=== PATIENT | male | born 1950 | race Caucasian/White ===

== ENCOUNTER 2022-01-19 19:52 | Inpatient (IN) ==
[2022-01-19] MEDS ORDERED: IOPAMIDOL 100 ML BOTTLE IV ONE (19:53)
--- NOTE | 2022-01-19 19:56 | Emergency Department Note ---
HPI General Chief complaint: Stroke Symptoms Stated complaint: stroke symptoms Time Seen by Provider: 01/19/22 19:56 Source: patient and family Mode of arrival: wheelchair Limitations: no limitations History of Present Illness HPI Narrative: 71-year-old male with past medical history of prior CVA and gait issues, known aortic dissection, CHF, CKD, atrial fibrillation not on anticoagulation, CAD, and hypertension presenting with slurred speech and arm numbness. Patient was seen in the emergency department 3 days ago with reports of slurred speech that had since resolved. He was evaluated and had a negative CT brain without contrast. It was presumed he had a TIA and he was discharged. He reportedly today was endorsing some numbness in his right arm earlier in the day, unknown exactly what time. Around 5 PM family noted some slurring of his speech so he was brought to the ED. Patient is also reportedly more confused than usual. Patient is not on anticoagulation. Patient does endorse some numbness in his right arm. He denies headache, vision changes, or weakness. Patient reportedly has chronic gait instability which seems to be worsening over the last week. He reportedly had multiple falls 4 days ago. No vomiting, shortness of breath, or chest pain. Related Data Home Medications Medication Instructions Recorded Confirmed tamsulosin 0.4 mg capsule (Flomax) 0.4 mg PO PRN PRN 07/22/20 11/29/21 valsartan 160 mg tablet 160 mg PO QDAY 07/22/20 11/29/21 clonidine HCl 0.1 mg tablet 1 tab PO TID 01/20/22 01/20/22 metoprolol tartrate 100 mg tablet 1 tab PO BID 01/20/22 01/20/22 nifedipine 30 mg tablet,extended 1 tab PO BID 01/20/22 01/20/22 release Allergies Allergy/AdvReac Type Severity Reaction Status Date / Time venom-honey bee Allergy Unknown Unknown Verified 01/16/22 16:39 spider venom Allergy Unknown Verified 01/16/22 16:39 Review of Systems ROS ROS Narrative: Narrative: Constitutional: Denies fever Eyes: Denies vision change ENT ED: Denies throat pain Cardiovascular: Denies chest pain Respiratory: Denies shortness of breath or cough Gastrointestinal: Denies abdominal pain, nausea or vomiting Genitourinary: Denies dysuria Musculoskeletal: Denies back pain Integumentary: Denies rash Neurological: Reports as per HPI Hematological/Lymphatic: Denies easy bruising PFSH Narrative Patient History Narrative: Narrative: Medical/Surgical/Family History All Active Problems (Updated 01/19/22 @ 23:18 by Dontae Crowley MD) Difficulty with speech (Acute) TIA (transient ischemic attack) (Acute) CVA (cerebrovascular accident) (Acute) Edema (Chronic) Hypothyroidism (Chronic) Other chest pain (Chronic) Acute kidney failure (Chronic) CAD (coronary artery disease) (Chronic) Elevated PSA (Chronic) Obstructive and reflux uropathy, unspecified (Chronic) Malignant hypertension (Chronic) Hypertensive urgency (Chronic) HTN (hypertension) (Chronic) History of aortic dissection (Chronic) Hematuria (Chronic) Fever (Chronic) Elevated troponin (Chronic) Chest pain (Chronic) Acute urinary retention (Chronic) Hyperbilirubinemia (Chronic) Situational anxiety (Chronic) Situational depression (Chronic) Esophageal dysphagia (Chronic) Oropharyngeal dysphagia (Chronic) Hearing loss (Chronic) Diplopia (Chronic) Wears dentures (Chronic) Hallucination (Chronic) Blurred vision (Chronic) History of orthopnea (Chronic) Tachycardia (Chronic) Loss of appetite (Chronic) Visual disturbance (Chronic) Difficulty concentrating (Chronic) Malaise (Chronic) Elevated blood pressure reading (Chronic) Left sided lacunar infarction (Chronic) Acute CVA (cerebrovascular accident) (Chronic) Cardiomyopathy (Chronic) Chronic systolic (congestive) heart failure (Chronic) Hyperlipidemia (Chronic) Dysuria (Chronic) Hypertriglyceridemia (Chronic) GERD (gastroesophageal reflux disease) (Chronic) Insomnia (Chronic) Contact dermatitis and other eczema due to other chemical products (Chronic) Cellulitis (Chronic) Sebaceous cyst (Chronic) Systolic heart failure (Chronic) Fatigue (Chronic) Gout (Chronic) Atrial fibrillation (Chronic) Chronic kidney disease (Chronic) Hypertension (Chronic) Stroke/cerebrovascular accident (Chronic) Retention of urine, unspecified (Chronic) BPH (benign prostatic hyperplasia) (Chronic) Hallucination, visual (Chronic) Altered mental state (Chronic) Abnormal ECG (Chronic) LVH (left ventricular hypertrophy) (Chronic) Abnormal CT of brain (Chronic) Dilated cardiomyopathy (Chronic) History of CHF (congestive heart failure) (Chronic) Carotid atherosclerosis (Chronic) Medical History (Updated 01/19/22 @ 23:18 by Dontae Crowley MD) Abnormal CT of brain Abnormal ECG Acute CVA (cerebrovascular accident) Acute kidney failure Acute urinary retention 71-year-old gentleman with long history of BPH with obstruction and intermittent episodes of urinary retention. He currently has been in urinary retention since July with an indwelling Mathews catheter. He is not a good surgical candidate I suspect due to his vascular and cardiac issues. Today we discussed options of replacing his Mathews catheter and planning a voiding trial in the future versus teaching him self intermittent catheterization. He was very interested in trying self-catheterization and therefore we instructed him in how to do this. He was able to do it with moderate coaching, I am a little suspect about whether he will be able to do this on his own. He does have a history of some strokes and has some decreased function in his right hand. After much discussion we opted to let him give it a try and he was given catheters and instructions to report to the emergency room if unable to catheterize. Otherwise he will follow-up here in clinic in 1 month. He is to try to take his Flomax on a daily basis. If he is unable to urinate a cystoscopy would be warranted to see if he would be a candidate for a minimally invasive prostate procedures such as UroLift Altered mental state Atrial fibrillation Blurred vision BPH (benign prostatic hyperplasia) CAD (coronary artery disease) Cardiomyopathy Carotid atherosclerosis Cellulitis left leg Chest pain CHF (congestive heart failure) Chronic kidney disease Chronic systolic (congestive) heart failure Contact dermatitis and other eczema due to other chemical products Difficulty concentrating Dilated cardiomyopathy Diplopia Dysuria Edema Elevated blood pressure reading Elevated PSA Elevated troponin Esophageal dysphagia Fatigue Fever GERD (gastroesophageal reflux disease) Gout Hallucination Hallucination, visual Health maintenance examination Hearing loss Hematuria History of aortic dissection History of CHF (congestive heart failure) History of orthopnea HTN (hypertension) Hyperbilirubinemia Hyperlipidemia Hypertension Hypertensive urgency Hypertriglyceridemia Hypothyroidism Insomnia Left sided lacunar infarction Loss of appetite LVH (left ventricular hypertrophy) Malaise Malignant hypertension Obstructive and reflux uropathy, unspecified Oropharyngeal dysphagia Other chest pain Retention of urine, unspecified Sebaceous cyst Situational anxiety Situational depression Stroke/cerebrovascular accident Systolic heart failure Tachycardia Visual disturbance Wears dentures Surgical History History of dental surgery Family History Mother Cancer at age 76, complications with liver cancer. Father at age 58. Logging accident. Brother Kidney failure at age 36 Social History Smoking Status: Never smoker Alcohol Intake Frequency: former alcohol drinker Substance Use: does not use Exam Narrative Narrative: Narrative: General Limitations: no limitations General appearance: Present alert and in no apparent distress Head Head: Present atraumatic and normocephalic Eye Eye: Present normal appearance, PERRL, EOMI and visual willis intact; Absent scleral icterus, conjunctival injection or nystagmus ENT ENT: Present mucous membranes moist Neck Neck: Present trachea midline Chest Chest: Present symmetric chest wall rise Respiratory Respiratory: Present normal lung sounds bilaterally; Absent respiratory distress, rales/crackles, wheezes, stridor or accessory muscle use Cardiovascular Cardiovascular: Present normal rhythm and irregular rhythm; Absent systolic murmur or diastolic murmur Adbominal Abdominal: Present soft; Absent distention, tenderness, guarding, rebound or rigidity Extremities Extremities: Absent pretibial edema Neurological Neurological: Present alert, CN II-XII intact and other (Mildly confused) Expanded Neurological Patient oriented to: Present person and place; Absent time Speech: Absent expressive aphasia or dysarthria CRANIAL NERVES: EOM function (II, III, IV, ): Normal, facial sensation (V): Normal, facial palsy (VII): Normal, gag reflex (IX): Normal, spinal accessory function (XI): Normal and tongue deviation (XII): Normal CEREBELLAR FUNCTION: finger to nose: Abnormal Right Motor strength - LUE: 5/5 Motor strength - RUE: 5/5 Motor strength - LLE: 5/5 Motor strength - RLE: 5/5 UPPER MOTOR NEURON EXAM: donald neglect: Normal SENSORY EXAM UPPER EXTREMITY: Abnormal Right: light touch SENSORY EXAM LOWER EXTREMITY: Abnormal Right: light touch Coma Scale Eye Opening: Spontaneous Coma Scale Motor Response: Obeys Commands Coma Scale Verbal Response: Oriented Coma Scale Total: 15 Psychiatric Psychiatric: Present normal affect and normal mood Skin Skin: Present warm (WNL) and dry Course Consultations Consultation #1: Dr. Cordova, stroke neurology Time: 20:40 Consultation #2: Dr. Acosta, hospitalist Time: 23:20 Vital Signs Vital signs: Vital Signs Temperature 97.9 F 01/19/22 19:53 Pulse Rate 96 H 01/19/22 19:53 Respiratory Rate 16 01/19/22 19:53 Blood Pressure 143/82 01/19/22 19:53 Pulse Oximetry (%) 97 01/19/22 19:53 Temperature 97.8 F 01/20/22 00:45 Pulse Rate 89 01/20/22 00:45 Respiratory Rate 16 01/20/22 00:45 Blood Pressure 160/99 01/20/22 00:45 Pulse Oximetry (%) 98 01/20/22 00:45 MDM MDM Narrative Medical decision making narrative: 71-year-old male presenting with slurred speech and arm numbness. He is mildly confused with slurred speech, limb ataxia and decreased sensation in the right limbs. No weakness. NIH stroke scale is 4. Blood glucose is 128. Code stroke activated. I spoke with Dr. Cordova of stroke neurology who states the patient appears to have a subacute right occipital infarct on CT brain without contrast. tPA is not indicated. He recommends CTA head and neck which were ordered. As long there is no large vessel occlusion, he recommends aspirin, atorvastatin, and admission for MRI. Aspirin 325mg and atorvastatin 80mg ordered. CTA head and neck show no evidence of significant stenosis or dissection in the neck. Labs appear stable. UA may be consistent with infection, dose of IV Rocephin ordered and urine sent for culture. 2320: I spoke with Dr. Acosta, hospitalist, who has graciously agreed to accept the patient for admission. Lab Data Lab results reviewed: Yes I reviewed the patient's lab results. Result diagrams: 01/19/22 20:08 01/19/22 20:07 Labs: Lab Results 01/19/22 01/19/22 01/19/22 Range/Units 20:06 20:07 20:08 WBC 6.7 (4.5-11.0) K/mcL RBC 4.61 L (4.63-6.08) M/mcL Hgb 13.2 L (13.7-17.5) g/dL Hct 40.2 (40.1-51.0) % MCV 87.2 (80.0-100.0) fL MCH 28.6 (26.0-34.0) pg MCHC 32.8 (31.0-36.0) g/dL RDW 14.0 (11.5-14.5) % Plt Count 219 (140-440) K/mcL MPV 11.3 H (7.4-10.4) fL Neut % (Auto) 59.2 (38.0-78.0) % Lymph % (Auto) 23.5 (15.5-49.0) % [place] % (Auto) 15.5 H (1.0-12.0) % Eos % (Auto) 1.2 (0.0-7.0) % Baso % (Auto) 0.6 (0.0-2.0) % Lymph # (Auto) 1.58 (1.50-4.80) K/mcL [place] # (Auto) 1.04 H (0.10-0.90) K/mcL Eos # (Auto) 0.08 (0.00-0.70) K/mcL Baso # (Auto) 0.04 (0.00-0.30) K/mcL Absolute Neutrophils 3.98 (1.80-8.00) K/mcL POC PT (11.9-14.5) PT (11.9-14.5) sec POC INR (0.8-1.2) INR (0.9-1.1) APTT (20.0-37.0) sec Sodium 135 (133-145) mmol/L Potassium 3.4 (3.3-5.1) mmol/L Chloride 100 (96-108) mmol/L Carbon Dioxide 22 (22-30) mmol/L Anion Gap 13.0 (8.0-16.0) BUN 16 (8-23) mg/dL Creatinine 1.3 H (0.7-1.2) mg/dL GFR Calculation 56 Glucose 141 H (70-105) mg/dL Calcium 8.9 (8.6-10.4) mg/dL Total Bilirubin 1.1 H (0.1-1.0) mg/dL AST 26 (<40) U/L ALT 14 (<40) U/L Alkaline Phosphatase 100 (39-117) U/L Troponin T (<0.03) ng/mL Total Protein 7.4 (5.9-8.4) gm/dL Albumin 3.6 (3.2-5.2) gm/dL Globulin 3.8 H (2.2-3.7) gm/dL Albumin/Globulin Ratio 0.9 L (1.0-2.3) Urine Color [place] Urine Appearance Cloudy A (Clear) Urine pH 5.0 (5.0-9.0) Ur Specific [place] 1.014 (1.000-1.035) Urine Protein 30 A (Negative) mg/dL Urine Glucose (UA) Negative (Negative) mg/dL Urine Ketones Negative (Negative) mg/dL Urine Occult Blood 0.03 (Negative) mg/dL Urine Nitrate Pos A (Negative) Urine Bilirubin Negative (Negative) mg/dL Urine Urobilinogen Negative mg/dL Ur Leukocyte Esterase 500 A (Negative) /uL Urine RBC 7 H (0-3) /hpf Urine WBC > 182 H (0-4) /hpf Ur Squamous Epith Cells 0 (0-4) /hpf Urine Bacteria Many A (0) /hpf Hyaline Casts 3 H (0-2) /lph Urine Mucus Few A (None) /hpf Ur Culture Indicated? yes 01/19/22 01/19/22 01/19/22 Range/Units 20:08 20:08 20:10 WBC (4.5-11.0) K/mcL RBC (4.63-6.08) M/mcL Hgb (13.7-17.5) g/dL Hct (40.1-51.0) % MCV (80.0-100.0) fL MCH (26.0-34.0) pg MCHC (31.0-36.0) g/dL RDW (11.5-14.5) % Plt Count (140-440) K/mcL MPV (7.4-10.4) fL Neut % (Auto) (38.0-78.0) % Lymph % (Auto) (15.5-49.0) % [place] % (Auto) (1.0-12.0) % Eos % (Auto) (0.0-7.0) % Baso % (Auto) (0.0-2.0) % Lymph # (Auto) (1.50-4.80) K/mcL [place] # (Auto) (0.10-0.90) K/mcL Eos # (Auto) (0.00-0.70) K/mcL Baso # (Auto) (0.00-0.30) K/mcL Absolute Neutrophils (1.80-8.00) K/mcL POC PT 14.9 H (11.9-14.5) PT 15.5 H (11.9-14.5) sec POC INR 1.3 H (0.8-1.2) INR 1.2 H (0.9-1.1) APTT 31.6 (20.0-37.0) sec Sodium (133-145) mmol/L Potassium (3.3-5.1) mmol/L Chloride (96-108) mmol/L Carbon Dioxide (22-30) mmol/L Anion Gap (8.0-16.0) BUN (8-23) mg/dL Creatinine (0.7-1.2) mg/dL GFR Calculation Glucose (70-105) mg/dL Calcium (8.6-10.4) mg/dL Total Bilirubin (0.1-1.0) mg/dL AST (<40) U/L ALT (<40) U/L Alkaline Phosphatase (39-117) U/L Troponin T < 0.01 (<0.03) ng/mL Total Protein (5.9-8.4) gm/dL Albumin (3.2-5.2) gm/dL Globulin (2.2-3.7) gm/dL Albumin/Globulin Ratio (1.0-2.3) Urine Color Urine Appearance (Clear) Urine pH (5.0-9.0) Ur Specific [place] (1.000-1.035) Urine Protein (Negative) mg/dL Urine Glucose (UA) (Negative) mg/dL Urine Ketones (Negative) mg/dL Urine Occult Blood (Negative) mg/dL Urine Nitrate (Negative) Urine Bilirubin (Negative) mg/dL Urine Urobilinogen mg/dL Ur Leukocyte Esterase (Negative) /uL Urine RBC (0-3) /hpf Urine WBC (0-4) /hpf Ur Squamous Epith Cells (0-4) /hpf Urine Bacteria (0) /hpf Hyaline Casts (0-2) /lph Urine Mucus (None) /hpf Ur Culture Indicated? Radiology Data Radiology results reviewed: Yes I reviewed the patient's radiology results. Radiology results narrative: CTA head and neck: No significant stenosis or dissection, per outside radiology interpretation. CT head without contrast: Chronic ischemic changes without hemorrhage or acute ischemic findings, per outside radiology interpretation. EKG Data EKG #1: EKG attestation: Yes I reviewed and interpreted this EKG. and Yes There are no EKG findings of acute coronary syndrome EKG results narrative: Atrial fibrillation at 89 bpm. QT prolonged. No ST elevation. Discharge Plan Patient/Caregiver Discharge Instructions Pt seen by FINANCIAL SERVICES REP/PA only: No Clinical Impression: CVA (cerebrovascular accident) Patient Disposition: Xfer As Inpt ([facility]) Condition: Fair Discharge Date/Time: 01/20/22 00:45
[2022-01-19 20:13] LABS: POC INR 1.3 (0.8-1.2); POC Pro Time 14.9 (11.9-14.5)
[2022-01-19 20:48] LABS: Basophils # (Auto) 0.04 K/mcL (0.00-0.30); Basophils % (Auto) 0.6 % (0.0-2.0); Eosinophils # (Auto) 0.08 K/mcL (0.00-0.70); Eosinophils % (Auto) 1.2 % (0.0-7.0); Hematocrit 40.2 % (40.1-51.0); Hemoglobin 13.2 g/dL (13.7-17.5); Lymphocytes # (Auto) 1.58 K/mcL (1.50-4.80); Lymphocytes % (Auto) 23.5 % (15.5-49.0); Mean Cell Volume 87.2 fL (80.0-100.0); Mean Corpuscular HGB Conc 32.8 g/dL (31.0-36.0); Mean Platelet Volume 11.3 fL (7.4-10.4); Monocytes # (Auto) 1.04 K/mcL (0.10-0.90); Monocytes % (Auto) 15.5 % (1.0-12.0); Neutrophils % (Auto) 59.2 % (38.0-78.0); Platelet Count 219 K/mcL (140-440); RBC 4.61 M/mcL (4.63-6.08); WBC 6.7 K/mcL (4.5-11.0)
[2022-01-19 20:52] LABS: Appearance,Urine CLOUDY (Clear); Bacteria,Urine MANY /hpf (0); Bilirubin,Urine Negative (Negative); Color,Urine AMBER; Culture Indicated,Urine yes; Glucose,Urine (UA) Negative (Negative); Ketones,Urine Negative (Negative); Leukocyte Esterase,Urine 500 /uL (Negative); Mucus,Urine FEW /hpf; Nitrate,Urine POS (Negative); Protein,Urine 30 mg/dL (Negative); Specific Gravity,Urine 1.014 (1.000-1.035); Urine Blood 0.03 mg/dL (Negative); Urine Hyaline Cast 3 /lph (0-2); Urine RBC 7 /hpf (0-3); Urine Squamous Epithelial Cell 0 /hpf (0-4); Urine WBC > 182 /hpf (0-4); Urobilinogen,Urine Negative
[2022-01-19 20:58] LABS: INR 1.2 (0.9-1.1); Partial Thromboplastin Time 31.6 sec (20.0-37.0); Prothrombin Time 15.5 sec (11.9-14.5)
[2022-01-19] MEDS ORDERED: ASPIRIN 325 MG ENTERIC COATED TABLET PO ONE (20:59)
[2022-01-19] MEDS ORDERED: ATORVASTATIN 40 MG TABLET PO ONE (20:59)
[2022-01-19 21:06] LABS: ALT/SGPT 14 U/L (<40); AST/SGOT 26 U/L (<40); Albumin 3.6 gm/dL (3.2-5.2); Albumin/Globulin Ratio 0.9 (1.0-2.3); Alkaline Phosphatase 100 U/L (39-117); Bilirubin,Total 1.1 mg/dL (0.1-1.0); Blood Urea Nitrogen 16 mg/dL (8-23); Calcium 8.9 mg/dL (8.6-10.4); Carbon Dioxide 22 mmol/L (22-30); Chloride 100 mmol/L (96-108); Globulin 3.8 gm/dL (2.2-3.7); Glomerular Filtration Rate 56; Glucose 141 mg/dL (70-105)
[2022-01-19] MEDS ORDERED: DILTIAZEM 25 MG/5 ML VIAL IV PRN (23:12)
[2022-01-19] MEDS ORDERED: ONDANSETRON 4 MG/2 ML VIAL IV PRN (23:12)
[2022-01-19] MEDS ORDERED: QUEtiapine 25 MG TABLET PO PRN (23:12)
[2022-01-19] MEDS ORDERED: hydrALAZINE 20 MG/ML VIAL IV PRN (23:12)
[2022-01-19] MEDS ORDERED: ACETAMINOPHEN 325 MG TABLET PO PRN (23:15)
[2022-01-19] MEDS ORDERED: PROCHLORPERAZINE 10 MG/2 ML VIAL IV PRN (23:15)
[2022-01-19] MEDS ORDERED: MAGNESIUM HYDROXIDE 30 ML ORAL.SUSP PO PRN (23:15)
[2022-01-20] MEDS: 0.9 % SODIUM CHLORIDE 1,000 ML IV SCH ×3 (01:11→19:03)
--- NOTE | 2022-01-20 04:04 | Cat Scan Report ---
CLINICAL INFORMATION: Code stroke COMPARISON: 01/16/2022 and 11/15/2018 TECHNIQUE: 2.5 mm helical slices were obtained in the skull base to vertex. Following reconstruction, axial reformatted images were reviewed at bone and parenchymal windows. The exam was performed using radiation dose optimization techniques including, but not limited to, automated exposure control, adjustment of the mA and/or kV according to patient size and use of iterative reconstruction technique. FINDINGS: The ventricles, sulci, fissures, and cisterns are symmetrically enlarged compatible with moderate atrophy-more than expected for age. No extra-axial fluid collections are identified. A moderate late acute infarct is seen throughout the medial left temporal lobe with extension into left occipital lobe. This results in mild local mass effect. No hemorrhage. Moderate remote infarct in the inferior right occipital lobe and scattered remote lacunar infarcts in the deep bifrontal white matter peripheral left cerebellum and basal ganglia seen-as before. Moderate patchy chronic ischemic changes, in the deep cerebral white matter, are expected for age. There is no hemorrhage, mass effect, or edema. Bone windows show no osseous abnormality. IMPRESSION: Moderate late acute infarct throughout most of the medial left temporal lobe with extension to the left occipital region. No evidence of hemorrhage. Mild local mass effect. This is new from exam just three days ago Moderate old infarct right occipital lobe and scattered old lacunar infarcts in the deep bifrontal white matter, left cerebellum and basal ganglia all stable radiographically. Moderate chronic ischemic changes in the deep cerebral white matter and moderate atrophy-more than expected for age. Also stable. Interpreted and Authenticated by: Jayce Tomas 01/20/22
--- NOTE | 2022-01-20 05:07 | Cat Scan Report ---
CLINICAL INFORMATION: Code stroke COMPARISON: None. TECHNIQUE: 80 cc of Isovue-370 were injected intravenously , and using SmartPrep to maximize cerebral arterial opacification, 0.625 mm helical slices were obtained from the skull base through the cerebral vertex. Following reconstruction , sagittal, coronal and axial reformatted images were processed and reviewed at multiple windows and levels. 3D volume rendered and MIP images were acquired at a independent workstation. The exam was performed using radiation dose optimization techniques including, but not limited to, automated exposure control, adjustment of the mA and/or kV according to patient size and use of iterative reconstruction technique. FINDINGS: A mild (less than 50%) stenosis seen within the M1 segment of the right internal cerebral artery. The remaining cerebral arterial vasculature including both anterior, left middle, both posterior cerebral, intracranial carotid and basilar arteries are widely patent. There is a 50% stenosis of the intracranial right vertebral artery. Superficial/deep cerebral veins and deep venous sinuses are widely patent IMPRESSION: 1. No evidence of thrombus or embolus. 2. 50% stenosis M1 segment of the right middle cerebral artery. 3. 50% stenosis intracranial right vertebral artery Interpreted and Authenticated by: Jayce Tomas 01/20/22
--- NOTE | 2022-01-20 05:11 | Cat Scan Report ---
CLINICAL INFORMATION: Code stroke COMPARISON: None. TECHNIQUE: 80 cc of Isovue-300 were injected intravenously followed by 40 cc of normal saline flush. Using SmartPrep, 0.625 helical slices were obtained from the thoracic aortic arch through the [place] of [place]. Following reconstruction, 2.5 mm sagittal, coronal and axial reformatted images were processed. MIPS , 3-D volume rendering and CPR images were also constructed. The exam was performed using radiation dose optimization techniques including, but not limited to, automated exposure control, adjustment of the mA and/or kV according to patient size and use of iterative reconstruction technique. FINDINGS: A [place] type B dissection commences just distal to the left subclavian artery origin and extends into the descending thoracic segment. Both true and false lumens are patent. Descending thoracic aortic diameter is increased-4 cm. No para-aortic hemorrhage. The brachiocephalic, both subclavian, both common internal and external carotid and both vertebral arteries are widely patent. No soft tissue abnormality. IMPRESSION: [place] type B dissection commencing distal to the left subclavian artery origin extending of the descending thoracic aorta. True and false lumens are patent. Aortic diameter is increased 4 cm. No evidence of perinephric hemorrhage/rupture. The brachiocephalic, both subclavian, all carotid and vertebral arteries are widely patent. Interpreted and Authenticated by: Jayce Tomas 01/20/22
[2022-01-20] MEDS: 0.9 % SODIUM CHLORIDE 10 ML SYRINGE IV SCH ×3 (05:30→20:27)
[2022-01-20 06:56] LABS: Basophils # (Auto) 0.04 K/mcL (0.00-0.30); Basophils % (Auto) 0.7 % (0.0-2.0); Eosinophils # (Auto) 0.15 K/mcL (0.00-0.70); Eosinophils % (Auto) 2.6 % (0.0-7.0); Hematocrit 38.4 % (40.1-51.0); Hemoglobin 12.3 g/dL (13.7-17.5); Lymphocytes # (Auto) 1.36 K/mcL (1.50-4.80); Lymphocytes % (Auto) 23.4 % (15.5-49.0); Mean Cell Volume 88.1 fL (80.0-100.0); Mean Platelet Volume 11.3 fL (7.4-10.4); Monocytes # (Auto) 0.99 K/mcL (0.10-0.90); Neutrophils % (Auto) 56.3 % (38.0-78.0); Platelet Count 195 K/mcL (140-440); RBC 4.36 M/mcL (4.63-6.08); WBC 5.8 K/mcL (4.5-11.0)
[2022-01-20 07:10] LABS: HDL Cholesterol 26 mg/dL (>40); LDL Cholesterol,Calculated 96 mg/dL (<100); Non-HDL Cholesterol 112 mg/dL (<130); Triglycerides 85 mg/dL (<150)
[2022-01-20 07:11] LABS: ALT/SGPT 13 U/L (<40); AST/SGOT 22 U/L (<40); Albumin 3.1 gm/dL (3.2-5.2); Albumin/Globulin Ratio 0.8 (1.0-2.3); Alkaline Phosphatase 91 U/L (39-117); Bilirubin,Total 1.1 mg/dL (0.1-1.0); Blood Urea Nitrogen 15 mg/dL (8-23); Calcium 8.7 mg/dL (8.6-10.4); Carbon Dioxide 25 mmol/L (22-30); Chloride 101 mmol/L (96-108); Globulin 3.8 gm/dL (2.2-3.7); Glomerular Filtration Rate 76; Glucose 90 mg/dL (70-105)
[2022-01-20] MEDS: ATORVASTATIN 40 MG TABLET PO SCH (08:48)
[2022-01-20] MEDS: PANTOPRAZOLE 40 MG TABLET PO SCH (08:49)
[2022-01-20] MEDS: DOCUSATE SODIUM 100 MG CAPSULE PO SCH ×2 (08:49→20:26)
[2022-01-20] MEDS ORDERED: ASPIRIN 81 MG TAB.CHEW CHEWED SCH (09:00)
[2022-01-20] MEDS ORDERED: ENOXAPARIN 40 MG/0.4 ML SYRINGE SQ SCH (09:00)
[2022-01-20] MEDS ORDERED: TAMSULOSIN 0.4 MG CAPSULE PO PRN (12:39)
--- NOTE | 2022-01-20 12:40 | Internal Med History&Physical ---
HPI History of Present Illness Patient information: Note initiated : 01/20/22 at 12:39 pm Service Date, if different from initiated Date: [] Patient: Tre Ayala 71 y/o M admitted on 01/20/22 for stroke symptoms. Chief Complaint: [] History of present illness: Mr. Ayala is a 71 year old M 71-year-old gentleman with a history of chronic aortic dissection, atrial fibrillation, CKD, CHF essential hypertension previous history of stroke was brought to the ER because of slurring of the speech and right arm numbness. Patient was seen in the ED on the and his symptoms were completely resolved he was reported slurring of the speech at that time which was completely back to normal and his NIH score was 0 and patient was discharged patient was offered admission but he declined but for the last 3 days he has been having worsening of symptoms and right arm numbness and was brought back to the ER In the ER he underwent work-up evaluated by telemetry neurology and recommended CTA of the head and neck and MRI for possible stroke. Patient supposed to be on anticoagulation for atrial fibrillation with the previous stroke but he declined he was leaning towards more naturopathic treatments and I reviewed the previous discussion with the PCP and he declined Coumadin or any newer oral anticoagulants. Patient will be admitted for further evaluation of stroke and for MRI His CTA showed chronic Fransisco B dissection Review of systems Constitutional: No reported fatigue no chills, no fever Eyes: no vision changes or pain Cardiovascular: no chest pain, no palpitations Respiratory: no cough or dyspnea Gastrointestinal: no nausea and stil have abdominal discomfort. Genitourinary: no dysuria or difficulty voiding Musculoskeletal: no arthralgia or myalgia Integumentary: no skin lesion or wound Neurological please see the HPI Psychiatric: no anxiety or depression Physical exam Head: No bruises, normal-appearing nontraumatic Eyes: normal appearance, no scleral icterus. Neck: full ROM Respiratory: no respiratory distress. Cardiovascular: normal rate and rhythm, S1, S2. GI/Abdominal: soft, nontender, no guarding. Extremities: full range of motion, nontender. Neurological: Numbness and tingling in the right upper extremity and slurring of the speech-no other focal deficit identified Psychiatric: normal mood. Skin: warm, normal color PFSH PFSH All Active Problems (Updated 01/19/22 @ 23:18 by Dontae Crowley MD) Difficulty with speech (Acute) TIA (transient ischemic attack) (Acute) CVA (cerebrovascular accident) (Acute) Edema (Chronic) Hypothyroidism (Chronic) Other chest pain (Chronic) Acute kidney failure (Chronic) CAD (coronary artery disease) (Chronic) Elevated PSA (Chronic) Obstructive and reflux uropathy, unspecified (Chronic) Malignant hypertension (Chronic) Hypertensive urgency (Chronic) HTN (hypertension) (Chronic) History of aortic dissection (Chronic) Hematuria (Chronic) Fever (Chronic) Elevated troponin (Chronic) Chest pain (Chronic) Acute urinary retention (Chronic) Hyperbilirubinemia (Chronic) Situational anxiety (Chronic) Situational depression (Chronic) Esophageal dysphagia (Chronic) Oropharyngeal dysphagia (Chronic) Hearing loss (Chronic) Diplopia (Chronic) Wears dentures (Chronic) Hallucination (Chronic) Blurred vision (Chronic) History of orthopnea (Chronic) Tachycardia (Chronic) Loss of appetite (Chronic) Visual disturbance (Chronic) Difficulty concentrating (Chronic) Malaise (Chronic) Elevated blood pressure reading (Chronic) Left sided lacunar infarction (Chronic) Acute CVA (cerebrovascular accident) (Chronic) Cardiomyopathy (Chronic) Chronic systolic (congestive) heart failure (Chronic) Hyperlipidemia (Chronic) Dysuria (Chronic) Hypertriglyceridemia (Chronic) GERD (gastroesophageal reflux disease) (Chronic) Insomnia (Chronic) Contact dermatitis and other eczema due to other chemical products (Chronic) Cellulitis (Chronic) Sebaceous cyst (Chronic) Systolic heart failure (Chronic) Fatigue (Chronic) Gout (Chronic) Atrial fibrillation (Chronic) Chronic kidney disease (Chronic) Hypertension (Chronic) Stroke/cerebrovascular accident (Chronic) Retention of urine, unspecified (Chronic) BPH (benign prostatic hyperplasia) (Chronic) Hallucination, visual (Chronic) Altered mental state (Chronic) Abnormal ECG (Chronic) LVH (left ventricular hypertrophy) (Chronic) Abnormal CT of brain (Chronic) Dilated cardiomyopathy (Chronic) History of CHF (congestive heart failure) (Chronic) Carotid atherosclerosis (Chronic) Medical History (Updated 01/19/22 @ 23:18 by Dontae Crowley MD) Abnormal CT of brain Abnormal ECG Acute CVA (cerebrovascular accident) Acute kidney failure Acute urinary retention 71-year-old gentleman with long history of BPH with obstruction and intermittent episodes of urinary retention. He currently has been in urinary retention since July with an indwelling Mathews catheter. He is not a good surgical candidate I suspect due to his vascular and cardiac issues. Today we discussed options of replacing his Mathews catheter and planning a voiding trial in the future versus teaching him self intermittent catheterization. He was very interested in trying self-catheterization and therefore we instructed him in how to do this. He was able to do it with moderate coaching, I am a little suspect about whether he will be able to do this on his own. He does have a history of some strokes and has some decreased function in his right hand. After much discussion we opted to let him give it a try and he was given catheters and instructions to report to the emergency room if unable to catheterize. Otherwise he will follow-up here in clinic in 1 month. He is to try to take his Flomax on a daily basis. If he is unable to urinate a cystoscopy would be warranted to see if he would be a candidate for a minimally invasive prostate procedures such as UroLift Altered mental state Atrial fibrillation Blurred vision BPH (benign prostatic hyperplasia) CAD (coronary artery disease) Cardiomyopathy Carotid atherosclerosis Cellulitis left leg Chest pain CHF (congestive heart failure) Chronic kidney disease Chronic systolic (congestive) heart failure Contact dermatitis and other eczema due to other chemical products Difficulty concentrating Dilated cardiomyopathy Diplopia Dysuria Edema Elevated blood pressure reading Elevated PSA Elevated troponin Esophageal dysphagia Fatigue Fever GERD (gastroesophageal reflux disease) Gout Hallucination Hallucination, visual Health maintenance examination Hearing loss Hematuria History of aortic dissection History of CHF (congestive heart failure) History of orthopnea HTN (hypertension) Hyperbilirubinemia Hyperlipidemia Hypertension Hypertensive urgency Hypertriglyceridemia Hypothyroidism Insomnia Left sided lacunar infarction Loss of appetite LVH (left ventricular hypertrophy) Malaise Malignant hypertension Obstructive and reflux uropathy, unspecified Oropharyngeal dysphagia Other chest pain Retention of urine, unspecified Sebaceous cyst Situational anxiety Situational depression Stroke/cerebrovascular accident Systolic heart failure Tachycardia Visual disturbance Wears dentures Surgical History History of dental surgery Family History Mother Cancer at age 76, complications with liver cancer. Father at age 58. Logging accident. Brother Kidney failure at age 36 Social History (Updated 07/07/18 @ 15:28 by Reji Valle MD) household members: spouse marital status: occupation: [employer]. 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 other: Children-4 physical activity: none alcohol intake frequency: former alcohol drinker substance use type: does not use seatbelt use: always MEDS/ALLERGIES Home Medications and Allergies Home Medications Medication Instructions Recorded Confirmed Type tamsulosin 0.4 mg capsule (Flomax) 0.4 mg PO PRN PRN 07/22/20 01/20/22 History valsartan 160 mg tablet 160 mg PO QDAY 07/22/20 01/20/22 History clonidine HCl 0.1 mg tablet 1 tab PO TID 01/20/22 01/20/22 History metoprolol tartrate 100 mg tablet 1 tab PO BID 01/20/22 01/20/22 History nifedipine 30 mg tablet,extended 1 tab PO BID 01/20/22 01/20/22 History release Allergies Allergy/AdvReac Type Severity Reaction Status Date / Time venom-honey bee Allergy Unknown Unknown Verified 01/16/22 16:39 spider venom Allergy Unknown Verified 01/16/22 16:39 EXAM Constitutional Vitals: Temp Pulse Resp BP Pulse Ox 97.8 F 89 14 168/99 96 01/20/22 12:00 01/20/22 12:00 01/20/22 12:00 01/20/22 12:00 01/20/22 12:00 DATA Data Completed and Pending Labs: Labs from last 24 hours 01/20/22 01/20/22 01/20/22 05:38 05:38 05:38 WBC 5.8 RBC 4.36 L Hgb 12.3 L Hct 38.4 L MCV 88.1 MCH 28.2 MCHC 32.0 RDW 14.0 Plt Count 195 MPV 11.3 H Neut % (Auto) 56.3 Lymph % (Auto) 23.4 [place] % (Auto) 17.0 H Eos % (Auto) 2.6 Baso % (Auto) 0.7 Lymph # (Auto) 1.36 L [place] # (Auto) 0.99 H Eos # (Auto) 0.15 Baso # (Auto) 0.04 Absolute Neutrophils 3.28 POC PT PT POC INR INR APTT Sodium 135 Potassium 3.0 L Chloride 101 Carbon Dioxide 25 Anion Gap 9.0 BUN 15 Creatinine 1.0 GFR Calculation 76 Glucose 90 Calcium 8.7 Magnesium 2.1 Total Bilirubin 1.1 H AST 22 ALT 13 Alkaline Phosphatase 91 Troponin T Total Protein 6.9 Albumin 3.1 L Globulin 3.8 H Albumin/Globulin Ratio 0.8 L Triglycerides 85 Cholesterol 138 LDL Cholesterol, Calc 96 Non-HDL Cholesterol 112 HDL Cholesterol 26 L Urine Color Urine Appearance Urine pH Ur Specific [place] Urine Protein Urine Glucose (UA) Urine Ketones Urine Occult Blood Urine Nitrate Urine Bilirubin Urine Urobilinogen Ur Leukocyte Esterase Urine RBC Urine WBC Ur Squamous Epith Cells Urine Bacteria Hyaline Casts Urine Mucus Ur Culture Indicated? 01/19/22 01/19/22 01/19/22 20:10 20:08 20:08 WBC RBC Hgb Hct MCV MCH MCHC RDW Plt Count MPV Neut % (Auto) Lymph % (Auto) [place] % (Auto) Eos % (Auto) Baso % (Auto) Lymph # (Auto) [place] # (Auto) Eos # (Auto) Baso # (Auto) Absolute Neutrophils POC PT 14.9 H PT 15.5 H POC INR 1.3 H INR 1.2 H APTT 31.6 Sodium Potassium Chloride Carbon Dioxide Anion Gap BUN Creatinine GFR Calculation Glucose Calcium Magnesium Total Bilirubin AST ALT Alkaline Phosphatase Troponin T < 0.01 Total Protein Albumin Globulin Albumin/Globulin Ratio Triglycerides Cholesterol LDL Cholesterol, Calc Non-HDL Cholesterol HDL Cholesterol Urine Color Urine Appearance Urine pH Ur Specific [place] Urine Protein Urine Glucose (UA) Urine Ketones Urine Occult Blood Urine Nitrate Urine Bilirubin Urine Urobilinogen Ur Leukocyte Esterase Urine RBC Urine WBC Ur Squamous Epith Cells Urine Bacteria Hyaline Casts Urine Mucus Ur Culture Indicated? 01/19/22 01/19/22 01/19/22 20:08 20:07 20:06 WBC 6.7 RBC 4.61 L Hgb 13.2 L Hct 40.2 MCV 87.2 MCH 28.6 MCHC 32.8 RDW 14.0 Plt Count 219 MPV 11.3 H Neut % (Auto) 59.2 Lymph % (Auto) 23.5 [place] % (Auto) 15.5 H Eos % (Auto) 1.2 Baso % (Auto) 0.6 Lymph # (Auto) 1.58 [place] # (Auto) 1.04 H Eos # (Auto) 0.08 Baso # (Auto) 0.04 Absolute Neutrophils 3.98 POC PT PT POC INR INR APTT Sodium 135 Potassium 3.4 Chloride 100 Carbon Dioxide 22 Anion Gap 13.0 BUN 16 Creatinine 1.3 H GFR Calculation 56 Glucose 141 H Calcium 8.9 Magnesium Total Bilirubin 1.1 H AST 26 ALT 14 Alkaline Phosphatase 100 Troponin T Total Protein 7.4 Albumin 3.6 Globulin 3.8 H Albumin/Globulin Ratio 0.9 L Triglycerides Cholesterol LDL Cholesterol, Calc Non-HDL Cholesterol HDL Cholesterol Urine Color Andria Urine Appearance Cloudy A Urine pH 5.0 Ur Specific [place] 1.014 Urine Protein 30 A Urine Glucose (UA) Negative Urine Ketones Negative Urine Occult Blood 0.03 Urine Nitrate Pos A Urine Bilirubin Negative Urine Urobilinogen Negative Ur Leukocyte Esterase 500 A Urine RBC 7 H Urine WBC > 182 H Ur Squamous Epith Cells 0 Urine Bacteria Many A Hyaline Casts 3 H Urine Mucus Few A Ur Culture Indicated? yes A/P Narrative Plan of Treatment: Acute CVA 3 days symptoms of slurring of speech and right arm numbness Previous history of stroke History atrial fibrillation-refusing anticoagulation Plan Discussed with the stroke neurologist during admission Recommended aspirin I discussed with the patient and will recommended dual antiplatelet as he is continue refusing anticoagulation Patient has a chronic type B dissection Physical therapy evaluation Speech therapy evaluation ordered Atrial fibrillation Not on anticoagulation Patient has atrial fibrillation continue his home medication Patient refused anticoagulation multiple times even with a episodes of stroke He is leaning towards more naturopathic treatment-reviewed documentation from PCP Discussed with the patient again advised him to think about it Chronic aortic dissection Patient was cardiology in the past He is supposed to follow-up with the vascular surgeon Supposed to have serial imaging We will get a vascular surgery opinion History of CKD Creatinine at baseline Will trend the creatinine Essential hypertension Will monitor blood pressure and tighter control of blood pressure less than 120 with his chronic aortic dissection Will resume his clonidine Metoprolol Nifedipine Valsartan Tamsulosin Hydralazine as needed DVT prophylaxis-SCDs we will hold the Lovenox due to dissection CODE STATUS-full code neck Time Spent With Patient Time: Total time spent is greater than 50% in coordination of care (as documented) at patient's floor/unit and/or counseling patient: Total time spent with greater than 50% in coordination of care (as documented) at patient's floor/unit and/or counseling patient:: 50 - 70 minutes Critical Care Time: No QUALITY Stroke Onset of Symptoms Date: 01/19/22 Onset of Symptoms Time: 19:00 Symptom Onset Unknown: No VTE Deep Vein Thrombosis/Pulmonary Embolism Present on Admission: No
--- NOTE | 2022-01-20 12:41 | Internal Med Progress Note ---
SUBJECTIVE Subjective Patient information: Note initiated : 01/20/22 at 12:41 pm Service Date, if different from initiated Date: [] Patient: Tre Ayala 71 y/o M admitted on 01/20/22 for stroke symptoms. Chief Complaint: [] Interval history: 71-year-old gentleman with a history of chronic aortic dissection, atrial fibrillation, CKD, CHF essential hypertension previous history of stroke was brought to the ER because of slurring of the speech and right arm numbness. Patient was seen in the ED on the and his symptoms were completely resolved he was reported slurring of the speech at that time which was completely back to normal and his NIH score was 0 and patient was discharged patient was offered admission but he declined but for the last 3 days he has been having worsening of symptoms and right arm numbness and was brought back to the ER In the ER he underwent work-up evaluated by telemetry neurology and recommended CTA of the head and neck and MRI for possible stroke. Patient supposed to be on anticoagulation for atrial fibrillation with the previous stroke but he declined he was leaning towards more naturopathic treatments and I reviewed the previous discussion with the PCP and he declined Coumadin or any newer oral an ticoagulants. Patient will be admitted for further evaluation of stroke and for MRI His CTA showed chronic Fransisco B dissection 01/20 His symptoms already improving He was able to work with the PT Speech therapy pending MRI showing evidence of temporal stroke Discussed with the patient again about anticoagulation and dual antiplatelet Review of systems Constitutional: No reported fatigue no chills, no fever Eyes: no vision changes or pain Cardiovascular: no chest pain, no palpitations Respiratory: no cough or dyspnea Gastrointestinal: no nausea and stil have abdominal discomfort. Genitourinary: no dysuria or difficulty voiding Musculoskeletal: no arthralgia or myalgia Integumentary: no skin lesion or wound Neurological please see the HPI Psychiatric: no anxiety or depression Physical exam Head: No bruises, normal-appearing nontraumatic Eyes: normal appearance, no scleral icterus. Neck: full ROM Respiratory: no respiratory distress. Cardiovascular: normal rate and rhythm, S1, S2. GI/Abdominal: soft, nontender, no guarding. Extremities: full range of motion, nontender. Neurological: Numbness and tingling in the right upper extremity and slurring of the speech-improving Psychiatric: normal mood. Skin: warm, normal color Constitutional Vitals: Vital Signs Temp Pulse Resp BP Pulse Ox 97.8 F 89 14 168/99 96 01/20/22 12:00 01/20/22 12:00 01/20/22 12:00 01/20/22 12:00 01/20/22 12:00 Period Temp Pulse Resp BP Sys/Corey Pulse Ox Last 24 Hr 97.8 F-97.9 F 68-96 12-23 124-168/80-104 94-99 Intake and Output 01/19/22 01/20/22 01/20/22 21:59 05:59 13:59 Intake Total 0 Output Total 635 500 Balance -635 -500 Weight 84.822 kg 90.718 kg Intake & Output: Intake & Output 01/19/22 01/20/22 01/20/22 21:59 05:59 13:59 Intake Total 0 Output Total 635 500 Balance -635 -500 Weight 84.822 kg 90.718 kg Intake: Oral 0 Output: Void Amount 635 500 Other: Urine Appearance Clear Clear Urine Color Bright Yellow Straw Urine Odor Normal Normal OBJ DATA Labs CBC & Chem 7: 01/20/22 05:38 01/20/22 05:38 Labs: Abnormal Lab Results 01/20/22 01/20/22 01/20/22 05:38 05:38 05:38 RBC 4.36 L Hgb 12.3 L Hct 38.4 L MPV 11.3 H Wise % (Auto) 17.0 H Lymph # (Auto) 1.36 L Wise # (Auto) 0.99 H POC PT PT POC INR INR Potassium 3.0 L Creatinine Glucose Total Bilirubin 1.1 H Albumin 3.1 L Globulin 3.8 H Albumin/Globulin Ratio 0.8 L HDL Cholesterol 26 L Urine Appearance Urine Protein Urine Nitrate Ur Leukocyte Esterase Urine RBC Urine WBC Urine Bacteria Hyaline Casts Urine Mucus 01/19/22 01/19/22 01/19/22 20:10 20:08 20:08 RBC 4.61 L Hgb 13.2 L Hct MPV 11.3 H Wise % (Auto) 15.5 H Lymph # (Auto) Wise # (Auto) 1.04 H POC PT 14.9 H PT 15.5 H POC INR 1.3 H INR 1.2 H Potassium Creatinine Glucose Total Bilirubin Albumin Globulin Albumin/Globulin Ratio HDL Cholesterol Urine Appearance Urine Protein Urine Nitrate Ur Leukocyte Esterase Urine RBC Urine WBC Urine Bacteria Hyaline Casts Urine Mucus 01/19/22 01/19/22 20:07 20:06 RBC Hgb Hct MPV Wise % (Auto) Lymph # (Auto) Wise # (Auto) POC PT PT POC INR INR Potassium Creatinine 1.3 H Glucose 141 H Total Bilirubin 1.1 H Albumin Globulin 3.8 H Albumin/Globulin Ratio 0.9 L HDL Cholesterol Urine Appearance Cloudy A Urine Protein 30 A Urine Nitrate Pos A Ur Leukocyte Esterase 500 A Urine RBC 7 H Urine WBC > 182 H Urine Bacteria Many A Hyaline Casts 3 H Urine Mucus Few A Meds: Medications Acetaminophen (Acetaminophen 325 Mg Tablet) 650 mg PO Q6HP PRN; Protocol PRN Reason: Per Pain Protocol/Fever > 101 Aspirin (Aspirin 81 Mg Tab.Chew) 81 mg CHEWED DAILY [facility] Last Admin: 01/20/22 08:48 Dose: 81 mg Documented by: Atorvastatin Calcium (Atorvastatin 40 Mg Tablet) 80 mg PO DAILY [facility] Last Admin: 01/20/22 08:48 Dose: 80 mg Documented by: Clonidine HCl (Clonidine Hcl 0.1 Mg Tablet) mg PO TID [facility] Diltiazem HCl (Diltiazem 25 Mg/5 Ml Vial) 10 mg IV Q4HP PRN PRN Reason: Tachyarrhythmias Docusate Sodium (Docusate Sodium 100 Mg Capsule) 100 mg PO BID [facility] Last Admin: 01/20/22 08:49 Dose: 100 mg Documented by: Enoxaparin Sodium (Enoxaparin 40 Mg/0.4 Ml Syringe) 40 mg SQ DAILY [facility] Last Admin: 01/20/22 08:48 Dose: 40 mg Documented by: Hydralazine HCl (Hydralazine 20 Mg/Ml Vial) 10 mg IV Q4-6HP PRN PRN Reason: Hypertension Sodium Chloride (Sodium Chloride 0.9%) 1,000 mls @ 75 mls/hr IV .[id number] [facility] Stop: 01/20/22 23:14 Last Admin: 01/20/22 01:11 Dose: 75 mls/hr Documented by: Magnesium Hydroxide (Magnesium Hydroxide 30 Ml Oral.Susp) 30 ml PO DAILYP PRN PRN Reason: Constipation Melatonin (Melatonin 3 Mg Tablet) 3 mg PO HSP PRN PRN Reason: Insomnia Non-Formulary Medication (Metoprolol Tartrate) 1 tab PO BID [facility] Non-Formulary Medication (Nifedipine) 1 tab PO BID [facility] Non-Formulary Medication (Valsartan) 160 mg PO QDAY [facility] Ondansetron HCl (Ondansetron 4 Mg/2 Ml Vial) 4 mg IV Q6HP PRN PRN Reason: Nausea And Vomiting Pantoprazole Sodium (Pantoprazole 40 Mg Tablet) 40 mg PO QAMAC [facility] Last Admin: 01/20/22 08:49 Dose: 40 mg Documented by: Potassium Chloride (Potassium Chloride 20 Meq Packet) 40 meq PO BIDCC [facility] Stop: 01/21/22 17:31 Prochlorperazine (Prochlorperazine 10 Mg/2 Ml Vial) 5 mg IV Q4HP PRN PRN Reason: Nausea And Vomiting Quetiapine Fumarate (Quetiapine 25 Mg Tablet) 12.5 mg PO HSP PRN PRN Reason: iNSOMNIA-2nd option Senna (Sennosides 1 Tablet) 2 tab PO HS [facility] Sodium Chloride (0.9 % Sodium Chloride 10 Ml Syringe) 10 ml IV Q8 [facility] Last Admin: 01/20/22 05:30 Dose: Not Given Documented by: Tamsulosin HCl (Tamsulosin 0.4 Mg Capsule) 0.4 mg PO PRN PRN PRN Reason: Urinary Retention A/P Narrative Plan of Treatment: Acute CVA 3 days symptoms of slurring of speech and right arm numbness Previous history of stroke History atrial fibrillation-refusing anticoagulation Plan Discussed with the stroke neurologist during admission Recommended aspirin I discussed with the patient and will recommended dual antiplatelet as he is continue refusing anticoagulation Patient has a chronic type B dissection Physical therapy evaluation Speech therapy evaluation ordered Atrial fibrillation Not on anticoagulation Patient has atrial fibrillation continue his home medication Patient refused anticoagulation multiple times even with a episodes of stroke He is leaning towards more naturopathic treatment-reviewed documentation from PCP Discussed with the patient again advised him to think about it Chronic aortic dissection Patient was cardiology in the past He is supposed to follow-up with the vascular surgeon Supposed to have serial imaging We will get a vascular surgery opinion History of CKD Creatinine at baseline Will trend the creatinine Essential hypertension Will monitor blood pressure and tighter control of blood pressure less than 120 with his chronic aortic dissection Will resume his clonidine Metoprolol Nifedipine Valsartan Tamsulosin Hydralazine as needed DVT prophylaxis-SCDs we will hold the Lovenox due to dissection CODE STATUS-full code neck Time Spent With Patient Time: Total time spent is greater than 50% in coordination of care (as documented) at patient's floor/unit and/or counseling patient: QUALITY Stroke Onset of Symptoms Date: 01/19/22 Onset of Symptoms Time: 19:00 Symptom Onset Unknown: No VTE Deep Vein Thrombosis/Pulmonary Embolism Present on Admission: No
[2022-01-20] MEDS: TAMSULOSIN 0.4 MG CAPSULE PO SCH (13:57)
[2022-01-20] MEDS: POTASSIUM CHLORIDE 20 MEQ PACKET PO SCH ×2 (13:57→17:26)
--- NOTE | 2022-01-20 14:42 | Magnetic Resonance Report ---
CLINICAL INFORMATION: Acute CVA COMPARISON: Brain MRI 11/16/2018 TECHNIQUE:Sagittal T1 FLAIR, axial T1 FLAIR, T2 FLAIR propeller, T2 propeller, gradient, diffusion, ADC and coronal T2 weighted images were acquired. FINDINGS: The ventricles, sulci, fissures and cisterns are symmetrically enlarged compatible with moderate atrophy-more than expected for age. Moderate cortical-based restricted diffusion is seen throughout the medial left temporal occipital lobes compatible with acute nonhemorrhagic infarct. Three foci of restricted diffusion, all less than 7 mm, are seen in the lateral left thalamus compatible with small acute nonhemorrhagic lacunar infarcts. Moderate remote cortical-based infarct inferior right occipital lobe and remote lacunar infarcts in the left external capsule and bilateral cerebellar hemispheres appreciated. Moderate chronic ischemic changes in the deep cerebral white matter show slight progression. IMPRESSION: Moderate acute cortical based infarct throughout the medial left temporal and occipital lobes. ( Left posterior cerebral artery vascular territory) Cluster three acute nonhemorrhagic lacunar infarcts in the posterior left thalamus Moderate atrophy and chronic ischemic changes throughout the cerebral white matter more than typically seen for age Moderate remote cortical-based infarct inferior right occipital lobe and remote lacunar infarcts in both cerebellar hemispheres and left external capsule Interpreted and Authenticated by: Jayce Toams 01/20/22
[2022-01-20] MEDS: cloNIDine HCL 0.1 MG TABLET PO SCH ×2 (15:45→20:26)
[2022-01-20] MEDS: hydrALAZINE 20 MG/ML VIAL IV PRN (19:51)
[2022-01-20] MEDS: METOPROLOL TARTRATE 50 MG TABLET PO SCH (20:26)
[2022-01-20] MEDS: NIFEdipine 30 MG TAB.XL.24H PO SCH (20:26)
[2022-01-20] MEDS: MELATONIN 3 MG TABLET PO PRN (20:26)
[2022-01-20] MEDS: SENNOSIDES 1 TABLET PO SCH (20:27)
[2022-01-21] MEDS: 0.9 % SODIUM CHLORIDE 10 ML SYRINGE IV SCH ×3 (05:53→20:58)
[2022-01-21 06:42] LABS: Basophils # (Auto) 0.04 K/mcL (0.00-0.30); Basophils % (Auto) 0.8 % (0.0-2.0); Eosinophils # (Auto) 0.11 K/mcL (0.00-0.70); Eosinophils % (Auto) 2.2 % (0.0-7.0); Hematocrit 40.8 % (40.1-51.0); Lymphocytes % (Auto) 26.5 % (15.5-49.0); Mean Cell Volume 90.7 fL (80.0-100.0); Mean Corpuscular HGB Conc 31.9 g/dL (31.0-36.0); Mean Platelet Volume 11.2 fL (7.4-10.4); Monocytes # (Auto) 0.72 K/mcL (0.10-0.90); Monocytes % (Auto) 14.7 % (1.0-12.0); Neutrophils % (Auto) 55.8 % (38.0-78.0); Platelet Count 225 K/mcL (140-440); Red Cell Distribution Width 14.1 % (11.5-14.5); WBC 4.9 K/mcL (4.5-11.0)
[2022-01-21 07:13] LABS: ALT/SGPT 14 U/L (<40); AST/SGOT 24 U/L (<40); Albumin 3.3 gm/dL (3.2-5.2); Albumin/Globulin Ratio 0.9 (1.0-2.3); Alkaline Phosphatase 97 U/L (39-117); Bilirubin,Total 0.9 mg/dL (0.1-1.0); Blood Urea Nitrogen 12 mg/dL (8-23); Carbon Dioxide 26 mmol/L (22-30); Chloride 104 mmol/L (96-108); Globulin 3.8 gm/dL (2.2-3.7); Glomerular Filtration Rate 76; Glucose 96 mg/dL (70-105)
[2022-01-21] MEDS: hydrALAZINE 20 MG/ML VIAL IV PRN ×2 (07:18→13:06)
[2022-01-21] MEDS: PANTOPRAZOLE 40 MG TABLET PO SCH (07:18)
[2022-01-21] MEDS: ATORVASTATIN 40 MG TABLET PO SCH (08:38)
[2022-01-21] MEDS: POTASSIUM CHLORIDE 20 MEQ PACKET PO SCH ×2 (08:38→16:52)
[2022-01-21] MEDS: LOSARTAN 50 MG TABLET PO SCH (08:38)
[2022-01-21] MEDS: METOPROLOL TARTRATE 50 MG TABLET PO SCH ×2 (08:38→20:58)
[2022-01-21] MEDS: APIXABAN 5 MG TABLET PO SCH ×2 (08:38→20:59)
[2022-01-21] MEDS: DOCUSATE SODIUM 100 MG CAPSULE PO SCH ×2 (08:39→20:59)
[2022-01-21] MEDS: NIFEdipine 30 MG TAB.XL.24H PO SCH ×2 (08:39→20:59)
[2022-01-21] MEDS: TAMSULOSIN 0.4 MG CAPSULE PO SCH (08:39)
[2022-01-21] MEDS: cloNIDine HCL 0.1 MG TABLET PO SCH ×3 (08:39→20:59)
--- NOTE | 2022-01-21 11:44 | Internal Med Progress Note ---
SUBJECTIVE Subjective Patient information: Note initiated : 01/21/22 at 11:43 am Service Date, if different from initiated Date: [] Patient: Tre Ayala 71 y/o M admitted on 01/20/22 for stroke symptoms. Chief Complaint: [] Interval history: 71-year-old gentleman with a history of chronic aortic dissection, atrial fibrillation, CKD, CHF essential hypertension previous history of stroke was brought to the ER because of slurring of the speech and right arm numbness. Patient was seen in the ED on the and his symptoms were completely resolved he was reported slurring of the speech at that time which was completely back to normal and his NIH score was 0 and patient was discharged patient was offered admission but he declined but for the last 3 days he has been having worsening of symptoms and right arm numbness and was brought back to the ER In the ER he underwent work-up evaluated by telemetry neurology and recommended CTA of the head and neck and MRI for possible stroke. Patient supposed to be on anticoagulation for atrial fibrillation with the previous stroke but he declined he was leaning towards more naturopathic treatments and I reviewed the previous discussion with the PCP and he declined Coumadin or any newer oral a nticoagulants. Patient will be admitted for further evaluation of stroke and for MRI His CTA showed chronic Fransisco B dissection 01/20 His symptoms already improving He was able to work with the PT Speech therapy pending MRI showing evidence of temporal stroke Discussed with the patient again about anticoagulation and dual antiplatelet Aortic dissection findings discussed with the on-call vascular surgeon at [facility]. Compared to the previous CT there is no significant change in aortic diameter previous 1 was 3.5 cm 4 months ago. He recommended outpatient follow-up in the next 2 months to further imaging. He also recommended no contraindication to do therapeutic anticoagulation. Discussed with the patient and patient is agreeable to do therapeutic antico agulation and will start him on Eliquis 5 mg twice daily for anticoagulation for atrial fibrillation Review of systems Constitutional: No reported fatigue no chills, no fever Eyes: no vision changes or pain Cardiovascular: no chest pain, no palpitations Respiratory: no cough or dyspnea Gastrointestinal: no nausea and stil have abdominal discomfort. Genitourinary: no dysuria or difficulty voiding Musculoskeletal: no arthralgia or myalgia Integumentary: no skin lesion or wound Neurological please see the HPI Psychiatric: no anxiety or depression Physical exam Head: No bruises, normal-appearing nontraumatic Eyes: normal appearance, no scleral icterus. Neck: full ROM Respiratory: no respiratory distress. Cardiovascular: normal rate and rhythm, S1, S2. GI/Abdominal: soft, nontender, no guarding. Extremities: full range of motion, nontender. Neurological: Numbness and tingling in the right upper extremity and slurring of the speech-improving Psychiatric: normal mood. Skin: warm, normal color Constitutional Vitals: Vital Signs Temp Pulse Resp BP Pulse Ox 97.3 F 70 16 158/92 100 01/21/22 08:00 01/21/22 03:26 01/21/22 08:00 01/21/22 08:00 01/21/22 08:00 Period Temp Pulse Resp BP Sys/Corey Pulse Ox Last 24 Hr 97.3 F-98.2 F 68-92 14-21 138-178/78-114 96-100 Intake and Output 01/20/22 01/21/22 01/21/22 21:59 05:59 13:59 Intake Total 3064 250 465 Output Total 625 625 845 Balance 2439 375 -380 Weight 90.718 kg Intake & Output: Intake & Output 01/20/22 01/21/22 01/21/22 21:59 05:59 13:59 Intake Total 3064 250 465 Output Total 625 625 845 Balance 2439 -375 -380 Weight 90.718 kg Intake: IV 1084 Sodium Chloride 0.9% 1,000 ml @ 1084 75 mls/hr IV .[id number] [facility] Rx#: [id number] Oral 1980 250 465 Output: Void Amount 625 411 845 Other: Meal Dinner Percent of Meal Consumed 100% 100% Urine Appearance Clear Clear Clear Urine Color Light Andria Light Andria Pale Urine Odor Normal Normal Normal OBJ DATA Labs CBC & Chem 7: 01/21/22 05:14 01/21/22 05:14 Labs: Abnormal Lab Results 01/21/22 01/21/22 01/20/22 05:14 05:14 05:38 RBC 4.50 L Hgb 13.0 L Hct MPV 11.2 H [place] % (Auto) 14.7 H Lymph # (Auto) 1.30 L [place] # (Auto) POC PT PT POC INR INR Potassium Creatinine Glucose Total Bilirubin Albumin Globulin 3.8 H Albumin/Globulin Ratio 0.9 L HDL Cholesterol 26 L Urine Appearance Urine Protein Urine Nitrate Ur Leukocyte Esterase Urine RBC Urine WBC Urine Bacteria Hyaline Casts Urine Mucus 01/20/22 01/20/22 01/19/22 05:38 05:38 20:10 RBC 4.36 L Hgb 12.3 L Hct 38.4 L MPV 11.3 H [place] % (Auto) 17.0 H Lymph # (Auto) 1.36 L [place] # (Auto) 0.99 H POC PT 14.9 H PT POC INR 1.3 H INR Potassium 3.0 L Creatinine Glucose Total Bilirubin 1.1 H Albumin 3.1 L Globulin 3.8 H Albumin/Globulin Ratio 0.8 L HDL Cholesterol Urine Appearance Urine Protein Urine Nitrate Ur Leukocyte Esterase Urine RBC Urine WBC Urine Bacteria Hyaline Casts Urine Mucus 01/19/22 01/19/22 01/19/22 20:08 20:08 20:07 RBC 4.61 L Hgb 13.2 L Hct MPV 11.3 H [place] % (Auto) 15.5 H Lymph # (Auto) [place] # (Auto) 1.04 H POC PT PT 15.5 H POC INR INR 1.2 H Potassium Creatinine 1.3 H Glucose 141 H Total Bilirubin 1.1 H Albumin Globulin 3.8 H Albumin/Globulin Ratio 0.9 L HDL Cholesterol Urine Appearance Urine Protein Urine Nitrate Ur Leukocyte Esterase Urine RBC Urine WBC Urine Bacteria Hyaline Casts Urine Mucus 01/19/22 20:06 RBC Hgb Hct MPV [place] % (Auto) Lymph # (Auto) [place] # (Auto) POC PT PT POC INR INR Potassium Creatinine Glucose Total Bilirubin Albumin Globulin Albumin/Globulin Ratio HDL Cholesterol Urine Appearance Cloudy A Urine Protein 30 A Urine Nitrate Pos A Ur Leukocyte Esterase 500 A Urine RBC 7 H Urine WBC > 182 H Urine Bacteria Many A Hyaline Casts 3 H Urine Mucus Few A Meds: Medications Acetaminophen (Acetaminophen 325 Mg Tablet) 650 mg PO Q6HP PRN; Protocol PRN Reason: Per Pain Protocol/Fever > 101 Apixaban (Apixaban 5 Mg Tablet) 5 mg PO BID [facility] Last Admin: 01/21/22 08:38 Dose: 5 mg Documented by: Atorvastatin Calcium (Atorvastatin 40 Mg Tablet) 80 mg PO DAILY [facility] Last Admin: 01/21/22 08:38 Dose: 80 mg Documented by: Clonidine HCl (Clonidine Hcl 0.1 Mg Tablet) 0.1 mg PO TID [facility] Last Admin: 01/21/22 08:39 Dose: 0.1 mg Documented by: Diltiazem HCl (Diltiazem 25 Mg/5 Ml Vial) 10 mg IV Q4HP PRN PRN Reason: Tachyarrhythmias Docusate Sodium (Docusate Sodium 100 Mg Capsule) 100 mg PO BID [facility] Last Admin: 01/21/22 08:39 Dose: 100 mg Documented by: Hydralazine HCl (Hydralazine 20 Mg/Ml Vial) 10 mg IV Q4-6HP PRN PRN Reason: Hypertension Last Admin: 01/21/22 07:18 Dose: 10 mg Documented by: Losartan Potassium (Losartan 50 Mg Tablet) 100 mg PO DAILY [facility] Last Admin: 01/21/22 08:38 Dose: 100 mg Documented by: Magnesium Hydroxide (Magnesium Hydroxide 30 Ml Oral.Susp) 30 ml PO DAILYP PRN PRN Reason: Constipation Melatonin (Melatonin 3 Mg Tablet) 3 mg PO HSP PRN PRN Reason: Insomnia Last Admin: 01/20/22 20:26 Dose: 3 mg Documented by: Metoprolol Tartrate (Metoprolol Tartrate 50 Mg Tablet) 100 mg PO BID [facility] Last Admin: 01/21/22 08:38 Dose: 100 mg Documented by: Nifedipine (Nifedipine 30 Mg Tab.Xl.24h) 30 mg PO BID [facility] Last Admin: 01/21/22 08:39 Dose: 30 mg Documented by: Ondansetron HCl (Ondansetron 4 Mg/2 Ml Vial) 4 mg IV Q6HP PRN PRN Reason: Nausea And Vomiting Pantoprazole Sodium (Pantoprazole 40 Mg Tablet) 40 mg PO QAMAC [facility] Last Admin: 01/21/22 07:18 Dose: 40 mg Documented by: Potassium Chloride (Potassium Chloride 20 Meq Packet) 40 meq PO BIDCC [facility] Stop: 01/21/22 17:31 Last Admin: 01/21/22 08:38 Dose: 40 meq Documented by: Prochlorperazine (Prochlorperazine 10 Mg/2 Ml Vial) 5 mg IV Q4HP PRN PRN Reason: Nausea And Vomiting Quetiapine Fumarate (Quetiapine 25 Mg Tablet) 12.5 mg PO HSP PRN PRN Reason: iNSOMNIA-2nd option Senna (Sennosides 1 Tablet) 2 tab PO [facility] Last Admin: 01/20/22 20:27 Dose: Not Given Documented by: Sodium Chloride (0.9 % Sodium Chloride 10 Ml Syringe) 10 ml IV Q8 [facility] Last Admin: 01/21/22 05:53 Dose: 10 ml Documented by: Tamsulosin HCl (Tamsulosin 0.4 Mg Capsule) 0.4 mg PO DAILY [facility] Last Admin: 01/21/22 08:39 Dose: 0.4 mg Documented by: A/P Narrative Plan of Treatment: Acute CVA 3 days symptoms of slurring of speech and right arm numbness Previous history of stroke History atrial fibrillation-refusing anticoagulation Plan Patient's MRI showing multiple stroke probably embolic Discussed with the patient, discussed with vascular surgeon due to the chronic dissection of aorta and started him on Eliquis 5 mg twice daily Patient agreeable to take anticoagulation and started him on Eliquis 5 mg twice daily Patient has a chronic type B dissection Physical therapy evaluation recommended home with walker Speech therapy evaluation ordered Chronic atrial fibrillation Patient has atrial fibrillation continue his home medication Patient refused anticoagulation multiple times even with a episodes of stroke He is leaning towards more naturopathic treatment-reviewed documentation from PCP Plan After multiple discussion patient agreeable to take anticoagulation. Discussed the option of staying aspirin and Eliquis and patient prefers to go with Eliquis alone. Discussed with the vascular surgeon at [facility]-because of the history of dissection and he recommended no restrictions starting anticoagulation Chronic aortic dissection Patient was cardiology in the past Discussed with the on-call vascular surgeon at [facility] and based on his previous CT scan no significant change so he recommended outpatient follow-up in the next 2 to 4 months for further imaging No need for any acute intervention History of CKD Creatinine at baseline Will trend the creatinine Essential hypertension Will monitor blood pressure and tighter control of blood pressure less than 120 with his chronic aortic dissection Will resume his clonidine Metoprolol Nifedipine Valsartan Tamsulosin Hydralazine as needed DVT prophylaxis-SCDs we will hold the Lovenox due to dissection CODE STATUS-full code neck Time Spent With Patient Time: Total time spent is greater than 50% in coordination of care (as documented) at patient's floor/unit and/or counseling patient: QUALITY Stroke Onset of Symptoms Date: 01/19/22 Onset of Symptoms Time: 19:00 Symptom Onset Unknown: No VTE Deep Vein Thrombosis/Pulmonary Embolism Present on Admission: No
[2022-01-21] MEDS: SENNOSIDES 1 TABLET PO SCH (20:59)
[2022-01-21] MEDS: MELATONIN 3 MG TABLET PO PRN (20:59)
[2022-01-22] MEDS: 0.9 % SODIUM CHLORIDE 10 ML SYRINGE IV SCH ×3 (04:38→20:53)
[2022-01-22 06:37] LABS: Basophils # (Auto) 0.03 K/mcL (0.00-0.30); Basophils % (Auto) 0.5 % (0.0-2.0); Eosinophils # (Auto) 0.12 K/mcL (0.00-0.70); Eosinophils % (Auto) 2.1 % (0.0-7.0); Hematocrit 39.7 % (40.1-51.0); Hemoglobin 12.6 g/dL (13.7-17.5); Lymphocytes # (Auto) 1.26 K/mcL (1.50-4.80); Lymphocytes % (Auto) 22.2 % (15.5-49.0); Mean Corpuscular HGB Conc 31.7 g/dL (31.0-36.0); Monocytes # (Auto) 0.77 K/mcL (0.10-0.90); Monocytes % (Auto) 13.6 % (1.0-12.0); Neutrophils % (Auto) 61.6 % (38.0-78.0); Platelet Count 233 K/mcL (140-440); RBC 4.46 M/mcL (4.63-6.08); Red Cell Distribution Width 14.1 % (11.5-14.5); WBC 5.7 K/mcL (4.5-11.0)
[2022-01-22 07:12] LABS: ALT/SGPT 13 U/L (<40); AST/SGOT 26 U/L (<40); Albumin 3.2 gm/dL (3.2-5.2); Albumin/Globulin Ratio 0.9 (1.0-2.3); Alkaline Phosphatase 95 U/L (39-117); Bilirubin,Total 0.8 mg/dL (0.1-1.0); Blood Urea Nitrogen 9 mg/dL (8-23); Carbon Dioxide 22 mmol/L (22-30); Chloride 103 mmol/L (96-108); Globulin 3.6 gm/dL (2.2-3.7); Glomerular Filtration Rate 43; Glucose 89 mg/dL (70-105)
[2022-01-22] MEDS: NIFEdipine 30 MG TAB.XL.24H PO SCH ×2 (08:17→20:52)
[2022-01-22] MEDS: cloNIDine HCL 0.1 MG TABLET PO SCH ×3 (08:17→20:52)
[2022-01-22] MEDS: ATORVASTATIN 40 MG TABLET PO SCH (08:18)
[2022-01-22] MEDS: TAMSULOSIN 0.4 MG CAPSULE PO SCH (08:18)
[2022-01-22] MEDS: DOCUSATE SODIUM 100 MG CAPSULE PO SCH ×2 (08:18→20:52)
[2022-01-22] MEDS: APIXABAN 5 MG TABLET PO SCH ×2 (08:18→20:52)
[2022-01-22] MEDS: PANTOPRAZOLE 40 MG TABLET PO SCH (08:18)
[2022-01-22] MEDS: METOPROLOL TARTRATE 50 MG TABLET PO SCH ×2 (08:18→20:52)
[2022-01-22] MEDS: LOSARTAN 50 MG TABLET PO SCH (08:18)
[2022-01-22] MEDS ORDERED: cefTRIAXone 2 GM in DEXTROSE 5% IN WATER 50 ML IV ONE (10:05)
--- NOTE | 2022-01-22 10:16 | Discharge Summary ---
Discharge Provider Provider IMPORTANT FOLLOW-UP INFORMATION FOR PCP: Patient information: Note initiated : 01/22/22 at 10:15 am Service Date, if different from initiated Date: [] Patient: Tre Ayala 71 y/o M admitted on 01/20/22 for stroke symptoms. Chief Complaint: [] Date of admission: 01/20/22 00:45 Discharge date: 01/22/22 Primary care physician: Ryan Maldonado Consults: 01/19/22 Consult to Physician [CONS] Stat Comment: Consulting Provider: Alvina Acosta Reason For Exam: Physician to Consult COURSE Hospital Course Hospital course: Acute CVA 3 days symptoms of slurring of speech and right arm numbness Previous history of stroke History atrial fibrillation-refusing anticoagulation Plan Patient's MRI showing multiple stroke probably embolic-throughout the medial left temporal and occipital lobe also lacunar infarct in the left thalamus Discussed with the patient, discussed with vascular surgeon due to the chronic dissection of aorta and started him on Eliquis 5 mg twice daily Patient agreeable to take anticoagulation and started him on Eliquis 5 mg twice daily Aspirin 81 mg daily-needs to follow-up with the neurology and primary care in 3 weeks to decide further on this Patient has a chronic type B dissection Physical therapy evaluation recommended home with walker Speech therapy evaluation-pending before discharge Echocardiogram-ejection fraction 55% no evidence of pulmonary hypertension no evidence of clot Chronic atrial fibrillation Patient has atrial fibrillation continue his home medication Patient refused anticoagulation multiple times even with a episodes of stroke He is leaning towards more naturopathic treatment-reviewed documentation from PCP Plan After multiple discussion patient agreeable to take anticoagulation. Discussed the option of staying aspirin and Eliquis and patient prefers to go with Eliquis alone. Discussed with the vascular surgeon at [facility]-because of the history of dissection and he recommended no restrictions starting anticoagulation Chronic aortic dissection Patient was cardiology in the past Discussed with the on-call vascular surgeon at [facility] and based on his previous CT scan no significant change so he recommended outpatient follow-up in the next 2 to 4 months for further imaging No need for any acute intervention Patient needs to follow-up with Dr. Bundy at [facility] History of CKD Creatinine at baseline Will trend the creatinine Essential hypertension Will monitor blood pressure and tighter control of blood pressure less than 120 with his chronic aortic dissection Will resume his clonidine Metoprolol Nifedipine Valsartan Tamsulosin Hydralazine as needed DVT prophylaxis-SCDs we will hold the Lovenox due to dissection CODE STATUS-full code neck 71-year-old gentleman with a history of chronic aortic dissection, atrial fibrillation, CKD, CHF essential hypertension previous history of stroke was brought to the ER because of slurring of the speech and right arm numbness. Patient was seen in the ED on the and his symptoms were completely resolved he was reported slurring of the speech at that time which was completely back to normal and his NIH score was 0 and patient was discharged patient was offered admission but he declined but for the last 3 days he has been having worsening of symptoms and right arm numbness and was brought back to the ER In the ER he underwent work-up evaluated by telemetry neurology and recommended CTA of the head and neck and MRI for possible stroke. Patient supposed to be on anticoagulation for atrial fibrillation with the previous stroke but he declined he was leaning towards more naturopathic treatments and I reviewed the previous discussion with the PCP and he declined Coumadin or any newer oral anticoagulants. Patient will be admitted for further evaluation of stroke and for MRI His CTA showed chronic Frans[place] B dissection 01/20 His symptoms already improving He was able to work with the PT Speech therapy pending MRI showing evidence of temporal stroke Discussed with the patient again about anticoagulation and dual antiplatelet Aortic dissection findings discussed with the on-call vascular surgeon at [facility]. Compared to the previous CT there is no significant change in aortic diameter previous 1 was 3.5 cm 4 months ago. He recommended outpatient follow-up in the next 2 months to further imaging. He also recommended no contraindication to do therapeutic anticoagulation. Discussed with the patient and patient is agreeable to do therapeutic anticoagulation and will start him on Eliquis 5 mg twice daily for anticoagulation for atrial fibrillation 01/22 Patient improved working with physical therapy and they recommended he can go home with a walker Patient was started on Eliquis His urine culture came back positive and started him on ceftriaxone 1 dose and will discharge him on cefdinir 300 twice daily for 7 days Advised the patient to follow-up with the vascular surgeon at [facility] Review of systems Constitutional: No reported fatigue no chills, no fever Eyes: no vision changes or pain Cardiovascular: no chest pain, no palpitations Respiratory: no cough or dyspnea Gastrointestinal: no nausea and stil have abdominal discomfort. Genitourinary: no dysuria or difficulty voiding Musculoskeletal: no arthralgia or myalgia Integumentary: no skin lesion or wound Neurological please see the HPI Psychiatric: no anxiety or depression Physical exam Head: No bruises, normal-appearing nontraumatic Eyes: normal appearance, no scleral icterus. Neck: full ROM Respiratory: no respiratory distress. Cardiovascular: normal rate and rhythm, S1, S2. GI/Abdominal: soft, nontender, no guarding. Extremities: full range of motion, nontender. Neurological: Numbness and tingling in the right upper extremity and slurring of the speech-improving Psychiatric: normal mood. Skin: warm, normal color Discharge diagnosis: Acute CVA, chronic type B aortic dissection Time Spent with Patient Time attestation: Total time spent providing and/or coordinating discharge services: Time spent: Greater than 30 minutes EXAM Constitutional Vitals: Temp Pulse Resp BP Pulse Ox 97.5 F 70 16 143/101 99 01/22/22 08:00 01/22/22 08:00 01/22/22 08:00 01/22/22 08:00 01/22/22 08:00 Discharge Data Data Completed and Pending Labs on day of discharge: Labs from last 24 hours 01/22/22 01/22/22 05:13 05:13 WBC 5.7 RBC 4.46 L Hgb 12.6 L Hct 39.7 L MCV 89.0 MCH 28.3 MCHC 31.7 RDW 14.1 Plt Count 233 MPV 11.0 H Neut % (Auto) 61.6 Lymph % (Auto) 22.2 [place] % (Auto) 13.6 H Eos % (Auto) 2.1 Baso % (Auto) 0.5 Lymph # (Auto) 1.26 L [place] # (Auto) 0.77 Eos # (Auto) 0.12 Baso # (Auto) 0.03 Absolute Neutrophils 3.50 Sodium 135 Potassium 4.1 Chloride 103 Carbon Dioxide 22 Anion Gap 10.0 BUN 9 Creatinine 1.6 H GFR Calculation 43 Glucose 89 Calcium 9.0 Magnesium 2.0 Total Bilirubin 0.8 AST 26 ALT 13 Alkaline Phosphatase 95 Total Protein 6.8 Albumin 3.2 Globulin 3.6 Albumin/Globulin Ratio 0.9 L Preliminary micro results at discharge 01/19/22 08:06 Urine Culture - Preliminary Urine - Clean Void Mid-Stream Gram negative bacillus Discharge Plan Patient/Caregiver Discharge Instructions Activity: increase activity as tolerated Instructions: A-fib (Atrial Fibrillation) (DC), Ischemic Stroke (DC) Activity Restrictions/Additional Instructions: Follow-up with Dr. Saunders at [facility] for aortic dissection- chronic Established with a neurologist in 2 to 3 weeks Follow-up with a primary care provider and yoghurt maker in 1 to 2 weeks Prescriptions: New Eliquis 5 mg tablet 5 mg PO BID Qty: 60 3RF cefdinir 300 mg capsule 300 mg PO BID Qty: 14 0RF atorvastatin [Lipitor] 40 mg tablet 40 mg PO QHS Qty: 30 3RF aspirin 81 mg capsule 81 mg PO QDAY Qty: 30 3RF Continued valsartan 160 mg Tablet 160 mg PO QDAY 0RF tamsulosin [Flomax] 0.4 mg Capsule 0.4 mg PO PRN PRN (Reason: Urinary Retention) 0RF metoprolol tartrate 100 mg tablet 1 tab PO BID 0RF nifedipine 30 mg tablet extended release 1 tab PO BID 0RF clonidine HCl 0.1 mg tablet 1 tab PO TID 0RF Follow Up Plan Follow up with: Ryan Maldonado MD [Primary Care Provider] - Patient Disposition: Home Health Service Plan of Treatment: Acute CVA 3 days symptoms of slurring of speech and right arm numbness Previous history of stroke History atrial fibrillation-refusing anticoagulation Plan Patient's MRI showing multiple stroke probably embolic Discussed with the patient, discussed with vascular surgeon due to the chronic dissection of aorta and started him on Eliquis 5 mg twice daily Patient agreeable to take anticoagulation and started him on Eliquis 5 mg twice daily Patient has a chronic type B dissection Physical therapy evaluation recommended home with walker Speech therapy evaluation ordered Chronic atrial fibrillation Patient has atrial fibrillation continue his home medication Patient refused anticoagulation multiple times even with a episodes of stroke He is leaning towards more naturopathic treatment-reviewed documentation from PCP Plan After multiple discussion patient agreeable to take anticoagulation. Discussed the option of staying aspirin and Eliquis and patient prefers to go with Eliquis alone. Discussed with the vascular surgeon at [facility]-because of the history of dissection and he recommended no restrictions starting anticoagulation Chronic aortic dissection Patient was cardiology in the past Discussed with the on-call vascular surgeon at [facility] and based on his previous CT scan no significant change so he recommended outpatient follow-up in the next 2 to 4 months for further imaging No need for any acute intervention History of CKD Creatinine at baseline Will trend the creatinine Essential hypertension Will monitor blood pressure and tighter control of blood pressure less than 120 with his chronic aortic dissection Will resume his clonidine Metoprolol Nifedipine Valsartan Tamsulosin Hydralazine as needed DVT prophylaxis-SCDs we will hold the Lovenox due to dissection CODE STATUS-full code neck Prognosis: Fair Rehab Potential: Critical I certify that the patient requires SNF services: No Overall status at discharge: patient is progressing back to baseline Discharge Orders: Discharge Order (Routine); Ordered 01/22/22 Ordered By: Alvina BROWN VTE Deep Vein Thrombosis/Pulmonary Embolism Present on Admission: No
--- NOTE | 2022-01-22 13:40 | Internal Med Progress Note ---
SUBJECTIVE Subjective Patient information: Note initiated : 01/22/22 at 1:35 pm Service Date, if different from initiated Date: [] Patient: Tre Ayala 71 y/o M admitted on 01/20/22 for stroke symptoms. Chief Complaint: [] Interval history: 71-year-old gentleman with a history of chronic aortic dissection, atrial fibrillation, CKD, CHF essential hypertension previous history of stroke was brought to the ER because of slurring of the speech and right arm numbness. Patient was seen in the ED on the and his symptoms were completely resolved he was reported slurring of the speech at that time which was completely back to normal and his NIH score was 0 and patient was discharged patient was offered admission but he declined but for the last 3 days he has been having worsening of symptoms and right arm numbness and was brought back to the ER In the ER he underwent work-up evaluated by telemetry neurology and recommended CTA of the head and neck and MRI for possible stroke. Patient supposed to be on anticoagulation for atrial fibrillation with the previous stroke but he declined he was leaning towards more naturopathic treatments and I reviewed the previous discussion with the PCP and he declined Coumadin or any newer oral ant icoagulants. Patient will be admitted for further evaluation of stroke and for MRI His CTA showed chronic [place] B dissection 01/20 His symptoms already improving He was able to work with the PT Speech therapy pending MRI showing evidence of temporal stroke Discussed with the patient again about anticoagulation and dual antiplatelet Aortic dissection findings discussed with the on-call vascular surgeon at [facility]. Compared to the previous CT there is no significant change in aortic diameter previous 1 was 3.5 cm 4 months ago. He recommended outpatient follow-up in the next 2 months to further imaging. He also recommended no contraindication to do therapeutic anticoagulation. Discussed with the patient and patient is agreeable to do therapeutic anticoag ulation and will start him on Eliquis 5 mg twice daily for anticoagulation for atrial fibrillation 01/22: Speech therapist recs. SNF placement, will work on placement instead of placement patient home. Constitutional Vitals: Vital Signs Temp Pulse Resp BP Pulse Ox 36.9 C 80 18 139/86 98 01/22/22 12:09 01/22/22 12:09 01/22/22 12:09 01/22/22 12:01/22/22 12:09 Period Temp Pulse Resp BP Sys/Corey Pulse Ox Last 24 Hr 36.4 C-36.9 C 66-80 14-18 126-143/76-101 97-100 Intake and Output 01/21/22 01/22/22 01/22/22 21:59 05:59 13:59 Intake Total 480 120 80 Output Total 350 1125 300 Balance 130 -1005 -220 Weight 91.308 kg Intake & Output: Intake & Output 01/21/22 01/22/22 01/22/22 21:59 05:59 13:59 Intake Total 480 120 80 Output Total 350 1125 300 Balance 130 -1005 -220 Weight 91.308 kg Intake: Oral 480 120 80 Output: Void Amount 350 1125 300 Other: Meal Dinner Breakfast Percent of Meal Consumed 100% 100% Feeding Ability Assist with Tray Set Up Independent Urine Appearance Clear Clear Clear Urine Color Straw Pale Straw Urine Odor Normal Normal # Voids 1 Head Head exam: Present atraumatic and normal inspection Eye Eye exam: Present normal appearance ENT ENT exam: Present mucous membranes moist, normal exam and normal external ear exam Neck Neck exam: Present normal inspection Respiratory Respiratory exam: Present normal respiratory exam Cardiovascular Cardiovascular exam: Present normal rate and rhythm GI/Abdominal GI/Abdominal exam: Present normal bowel sounds Back Exam Back exam: Present normal inspection Neurological Exam Neurological exam: Present alert and oriented X3 Skin Skin exam: Present intact and warm OBJ DATA Labs CBC & Chem 7: 01/22/22 05:13 01/22/22 05:13 Labs: Abnormal Lab Results 01/22/22 01/22/22 01/21/22 05:13 05:13 05:14 RBC 4.46 L Hgb 12.6 L Hct 39.7 L MPV 11.0 H [place] % (Auto) 13.6 H Lymph # (Auto) 1.26 L [place] # (Auto) POC PT PT POC INR INR Potassium Creatinine 1.6 H Glucose Total Bilirubin Albumin Globulin 3.8 H Albumin/Globulin Ratio 0.9 L 0.9 L HDL Cholesterol Urine Appearance Urine Protein Urine Nitrate Ur Leukocyte Esterase Urine RBC Urine WBC Urine Bacteria Hyaline Casts Urine Mucus 01/21/22 01/20/22 01/20/22 05:14 05:38 05:38 RBC 4.50 L Hgb 13.0 L Hct MPV 11.2 H [place] % (Auto) 14.7 H Lymph # (Auto) 1.30 L [place] # (Auto) POC PT PT POC INR INR Potassium 3.0 L Creatinine Glucose Total Bilirubin 1.1 H Albumin 3.1 L Globulin 3.8 H Albumin/Globulin Ratio 0.8 L HDL Cholesterol 26 L Urine Appearance Urine Protein Urine Nitrate Ur Leukocyte Esterase Urine RBC Urine WBC Urine Bacteria Hyaline Casts Urine Mucus 01/20/22 01/19/22 01/19/22 05:38 20:10 20:08 RBC 4.36 L Hgb 12.3 L Hct 38.4 L MPV 11.3 H [place] % (Auto) 17.0 H Lymph # (Auto) 1.36 L [place] # (Auto) 0.99 H POC PT 14.9 H PT 15.5 H POC INR 1.3 H INR 1.2 H Potassium Creatinine Glucose Total Bilirubin Albumin Globulin Albumin/Globulin Ratio HDL Cholesterol Urine Appearance Urine Protein Urine Nitrate Ur Leukocyte Esterase Urine RBC Urine WBC Urine Bacteria Hyaline Casts Urine Mucus 01/19/22 01/19/22 01/19/22 20:08 20:07 20:06 RBC 4.61 L Hgb 13.2 L Hct MPV 11.3 H [place] % (Auto) 15.5 H Lymph # (Auto) [place] # (Auto) 1.04 H POC PT PT POC INR INR Potassium Creatinine 1.3 H Glucose 141 H Total Bilirubin 1.1 H Albumin Globulin 3.8 H Albumin/Globulin Ratio 0.9 L HDL Cholesterol Urine Appearance Cloudy A Urine Protein 30 A Urine Nitrate Pos A Ur Leukocyte Esterase 500 A Urine RBC 7 H Urine WBC > 182 H Urine Bacteria Many A Hyaline Casts 3 H Urine Mucus Few A Meds: Medications Acetaminophen (Acetaminophen 325 Mg Tablet) 650 mg PO Q6HP PRN; Protocol PRN Reason: Per Pain Protocol/Fever > 101 Apixaban (Apixaban 5 Mg Tablet) 5 mg PO BID [facility] Last Admin: 01/22/22 08:18 Dose: 5 mg Documented by: Atorvastatin Calcium (Atorvastatin 40 Mg Tablet) 80 mg PO DAILY [facility] Last Admin: 01/22/22 08:18 Dose: 80 mg Documented by: Clonidine HCl (Clonidine Hcl 0.1 Mg Tablet) 0.1 mg PO TID [facility] Last Admin: 01/22/22 08:17 Dose: 0.1 mg Documented by: Diltiazem HCl (Diltiazem 25 Mg/5 Ml Vial) 10 mg IV Q4HP PRN PRN Reason: Tachyarrhythmias Docusate Sodium (Docusate Sodium 100 Mg Capsule) 100 mg PO BID [facility] Last Admin: 01/22/22 08:18 Dose: 100 mg Documented by: Hydralazine HCl (Hydralazine 20 Mg/Ml Vial) 10 mg IV Q4-6HP PRN PRN Reason: Hypertension Last Admin: 01/21/22 07:18 Dose: 10 mg Documented by: Losartan Potassium (Losartan 50 Mg Tablet) 100 mg PO DAILY [facility] Last Admin: 01/22/22 08:18 Dose: 100 mg Documented by: Magnesium Hydroxide (Magnesium Hydroxide 30 Ml Oral.Susp) 30 ml PO DAILYP PRN PRN Reason: Constipation Melatonin (Melatonin 3 Mg Tablet) 3 mg PO HSP PRN PRN Reason: Insomnia Last Admin: 01/21/22 20:59 Dose: 3 mg Documented by: Metoprolol Tartrate (Metoprolol Tartrate 50 Mg Tablet) 100 mg PO BID [facility] Last Admin: 01/22/22 08:18 Dose: 100 mg Documented by: Nifedipine (Nifedipine 30 Mg Tab.Xl.24h) 30 mg PO BID [facility] Last Admin: 01/22/22 08:17 Dose: 30 mg Documented by: Ondansetron HCl (Ondansetron 4 Mg/2 Ml Vial) 4 mg IV Q6HP PRN PRN Reason: Nausea And Vomiting Pantoprazole Sodium (Pantoprazole 40 Mg Tablet) 40 mg PO QAMAC [facility] Last Admin: 01/22/22 08:18 Dose: 40 mg Documented by: Prochlorperazine (Prochlorperazine 10 Mg/2 Ml Vial) 5 mg IV Q4HP PRN PRN Reason: Nausea And Vomiting Quetiapine Fumarate (Quetiapine 25 Mg Tablet) 12.5 mg PO HSP PRN PRN Reason: iNSOMNIA-2nd option Senna (Sennosides 1 Tablet) 2 tab PO HS [facility] Last Admin: 01/21/22 20:59 Dose: 2 tab Documented by: Sodium Chloride (0.9 % Sodium Chloride 10 Ml Syringe) 10 ml IV Q8 [facility] Last Admin: 01/22/22 12:54 Dose: 10 ml Documented by: Tamsulosin HCl (Tamsulosin 0.4 Mg Capsule) 0.4 mg PO DAILY [facility] Last Admin: 01/22/22 08:18 Dose: 0.4 mg Documented by: A/P Narrative Plan of Treatment: Acute CVA 3 days symptoms of slurring of speech and right arm numbness Previous history of stroke History atrial fibrillation-refusing anticoagulation Plan Patient's MRI showing multiple stroke probably embolic Discussed with the patient, discussed with vascular surgeon due to the chronic dissection of aorta and started him on Eliquis 5 mg twice daily Patient agreeable to take anticoagulation and started him on Eliquis 5 mg twice daily Patient has a chronic type B dissection Physical therapy evaluation recommended home with walker Speech therapy-->SNF placement Chronic atrial fibrillation Patient has atrial fibrillation continue his home medication Patient refused anticoagulation multiple times even with a episodes of stroke He is leaning towards more naturopathic treatment-reviewed documentation from PCP Plan After multiple discussion patient agreeable to take anticoagulation. Discussed the option of staying aspirin and Eliquis and patient prefers to go with Eliquis alone. Discussed with the vascular surgeon at [facility]-because of the history of dissection and he recommended no restrictions starting anticoagulation Chronic aortic dissection Patient was cardiology in the past Discussed with the on-call vascular surgeon at [facility] and based on his previous CT scan no significant change so he recommended outpatient follow-up in the next 2 to 4 months for further imaging No need for any acute intervention History of CKD Creatinine at baseline Will trend the creatinine Essential hypertension Will monitor blood pressure and tighter control of blood pressure less than 120 with his chronic aortic dissection Will resume his clonidine Metoprolol Nifedipine Valsartan Tamsulosin Hydralazine as needed DVT prophylaxis-Eliquis CODE STATUS-full code Disposition: SNF placement Time Spent With Patient Time: Total time spent is greater than 50% in coordination of care (as documented) at patient's floor/unit and/or counseling patient: Total time spent with greater than 50% in coordination of care (as documented) at patient's floor/unit and/or counseling patient:: 35 - 50 minutes Critical Care Time: No QUALITY Stroke Onset of Symptoms Date: 01/19/22 Onset of Symptoms Time: 19:00 Symptom Onset Unknown: No VTE Deep Vein Thrombosis/Pulmonary Embolism Present on Admission: No
[2022-01-22] MEDS: SENNOSIDES 1 TABLET PO SCH (20:52)
[2022-01-22] MEDS: MELATONIN 3 MG TABLET PO PRN (20:52)
[2022-01-23] MEDS: 0.9 % SODIUM CHLORIDE 10 ML SYRINGE IV SCH ×3 (05:17→22:09)
[2022-01-23 06:29] LABS: Basophils # (Auto) 0.04 K/mcL (0.00-0.30); Basophils % (Auto) 0.7 % (0.0-2.0); Eosinophils # (Auto) 0.12 K/mcL (0.00-0.70); Hemoglobin 13.4 g/dL (13.7-17.5); Lymphocytes # (Auto) 1.75 K/mcL (1.50-4.80); Lymphocytes % (Auto) 29.5 % (15.5-49.0); Mean Cell Volume 90.1 fL (80.0-100.0); Mean Corpuscular HGB Conc 31.2 g/dL (31.0-36.0); Mean Platelet Volume 10.9 fL (7.4-10.4); Monocytes # (Auto) 0.62 K/mcL (0.10-0.90); Monocytes % (Auto) 10.4 % (1.0-12.0); Neutrophils % (Auto) 57.1 % (38.0-78.0); Platelet Count 234 K/mcL (140-440); RBC 4.77 M/mcL (4.63-6.08); Red Cell Distribution Width 14.2 % (11.5-14.5); WBC 5.9 K/mcL (4.5-11.0)
[2022-01-23 07:00] LABS: ALT/SGPT 14 U/L (<40); AST/SGOT 27 U/L (<40); Albumin 3.4 gm/dL (3.2-5.2); Albumin/Globulin Ratio 0.9 (1.0-2.3); Alkaline Phosphatase 104 U/L (39-117); Bilirubin,Total 0.6 mg/dL (0.1-1.0); Blood Urea Nitrogen 15 mg/dL (8-23); Calcium 9.1 mg/dL (8.6-10.4); Carbon Dioxide 23 mmol/L (22-30); Chloride 104 mmol/L (96-108); Globulin 3.7 gm/dL (2.2-3.7); Glomerular Filtration Rate 28; Glucose 99 mg/dL (70-105)
[2022-01-23] MEDS: PANTOPRAZOLE 40 MG TABLET PO SCH (07:35)
[2022-01-23] MEDS: cloNIDine HCL 0.1 MG TABLET PO SCH ×3 (08:35→22:08)
[2022-01-23] MEDS: ATORVASTATIN 40 MG TABLET PO SCH (08:35)
[2022-01-23] MEDS: APIXABAN 5 MG TABLET PO SCH ×2 (08:35→22:08)
[2022-01-23] MEDS: DOCUSATE SODIUM 100 MG CAPSULE PO SCH ×2 (08:36→22:09)
[2022-01-23] MEDS: LOSARTAN 50 MG TABLET PO SCH (08:37)
[2022-01-23] MEDS: METOPROLOL TARTRATE 50 MG TABLET PO SCH ×2 (08:37→22:08)
[2022-01-23] MEDS: NIFEdipine 30 MG TAB.XL.24H PO SCH ×2 (08:37→22:08)
[2022-01-23] MEDS: TAMSULOSIN 0.4 MG CAPSULE PO SCH (08:40)
[2022-01-23] MEDS: 0.9 % SODIUM CHLORIDE 1,000 ML IV SCH ×2 (11:12→19:23)
--- NOTE | 2022-01-23 11:16 | Internal Med Progress Note ---
SUBJECTIVE Subjective Patient information: Note initiated : 01/23/22 at 11:06 am Service Date, if different from initiated Date: [] Patient: Tre Ayala 71 y/o M admitted on 01/20/22 for stroke symptoms. Chief Complaint: [] Interval history: Interval history: 71-year-old gentleman with a history of chronic aortic dissection, atrial fibrillation, CKD, CHF essential hypertension previous history of stroke was brought to the ER because of slurring of the speech and right arm numbness. Patient was seen in the ED on the and his symptoms were completely resolved he was reported slurring of the speech at that time which was completely back to normal and his NIH score was 0 and patient was discharged patient was offered admission but he declined but for the last 3 days he has been having worsening of symptoms and right arm numbness and was brought back to the ER In the ER he underwent work-up evaluated by telemetry neurology and recommended CTA of the head and neck and MRI for possible stroke. Patient supposed to be on anticoagulation for atrial fibrillation with the previous stroke but he declined he was leaning towards more naturopathic treatments and I reviewed the previous discussion with the PCP and he declined Coumadin or any newer oral anticoagulants. Patient will be admitted for further evaluation of stroke and for MRI His CTA showed chronic [place] B dissection 01/20 His symptoms already improving He was able to work with the PT Speech therapy pending MRI showing evidence of temporal stroke Discussed with the patient again about anticoagulation and dual antiplatelet Aortic dissection findings discussed with the on-call vascular surgeon at [facility]. Compared to the previous CT there is no significant change in aortic diameter previous 1 was 3.5 cm 4 months ago. He recommended outpatient follow-up in the next 2 months to further imaging. He also recommended no contraindication to do therapeutic anticoagulation. Discussed with the patient and patient is agreeable to do therapeutic anticoagulation and will start him on Eliquis 5 mg twice daily for anticoagulation for atrial fibrillation 01/22: Speech therapist recs. SNF placement, will work on placement instead of [facility] patient home. 01/23: No major overnight events. Patient's serum creatinine continues to get worse over the past 2 days this morning 2.3. Patient is continue to demonstrate word finding difficulty as well as hand eye coordination deficit. He denies numbness or weakness of any of his extremities. He denies any dysphagia. He was being recommended by speech therapist to be placed at SNF. [facility] will be [facility] tomorrow. We will start IV fluid f or rehydration purposes for now. Also continue Eliquis. Constitutional Vitals: Vital Signs Temp Pulse Resp BP Pulse Ox 36.6 C 75 20 148/98 100 01/23/22 07:59 01/23/22 07:59 01/23/22 07:59 01/23/22 07:59 01/23/22 07:59 Period Temp Pulse Resp BP Sys/Corey Pulse Ox Last 24 Hr 36.3 C-37.0 C 64-80 16-20 128-148/85-98 97-100 Intake and Output 01/22/22 01/23/22 01/23/22 21:59 05:59 13:59 Intake Total 430 100 Output Total 50 500 Balance 380 -400 Weight 89.176 kg Intake & Output: Intake & Output 01/22/22 01/23/22 01/23/22 21:59 05:59 13:59 Intake Total 430 100 Output Total 50 500 Balance 380 -400 Weight 89.176 kg Intake: IV 50 Rocephin 2 gm In Dextrose 5% in 50 Water 50 ml @ 100 mls/hr IV ONCE ONE Rx#:[id number] Oral 380 100 Output: Void Amount 50 500 Other: Meal Dinner Percent of Meal Consumed 100% Feeding Ability Assist with Tray Set Up Urine Appearance Clear Clear Urine Color Bright Yellow Pale # Voids 1 1 1 General appearance: cooperative and no acute distress Head Head exam: Present atraumatic and normal inspection Eye Eye exam: Present normal appearance ENT ENT exam: Present mucous membranes moist, normal exam and normal external ear exam Neck Neck exam: Present normal inspection Respiratory Respiratory exam: Present normal respiratory exam Cardiovascular Cardiovascular exam: Present irregular rhythm GI/Abdominal GI/Abdominal exam: Present normal bowel sounds Back Exam Back exam: Present normal inspection Neurological Exam Neurological exam: Present alert and oriented X3 Additional comments: Word finding difficulty Skin Skin exam: Present intact and warm OBJ DATA Labs CBC & Chem 7: 01/23/22 05:48 01/23/22 05:48 Labs: Abnormal Lab Results 01/23/22 01/23/22 01/22/22 05:48 05:48 05:13 RBC Hgb 13.4 L Hct MPV 10.9 H [place] % (Auto) Lymph # (Auto) Creatinine 2.3 H 1.6 H Globulin Albumin/Globulin Ratio 0.9 L 0.9 L 01/22/22 01/21/22 01/21/22 05:13 05:14 05:14 RBC 4.46 L 4.50 L Hgb 12.6 L 13.0 L Hct 39.7 L MPV 11.0 H 11.2 H [place] % (Auto) 13.6 H 14.7 H Lymph # (Auto) 1.26 L 1.30 L Creatinine Globulin 3.8 H Albumin/Globulin Ratio 0.9 L Meds: Medications Acetaminophen (Acetaminophen 325 Mg Tablet) 650 mg PO Q6HP PRN; Protocol PRN Reason: Per Pain Protocol/Fever > 101 Apixaban (Apixaban 5 Mg Tablet) 5 mg PO BID [facility] Last Admin: 01/23/22 08:35 Dose: 5 mg Documented by: Atorvastatin Calcium (Atorvastatin 40 Mg Tablet) 80 mg PO DAILY [facility] Last Admin: 01/23/22 08:35 Dose: 80 mg Documented by: Clonidine HCl (Clonidine Hcl 0.1 Mg Tablet) 0.1 mg PO TID [facility] Last Admin: 01/23/22 08:35 Dose: 0.1 mg Documented by: Diltiazem HCl (Diltiazem 25 Mg/5 Ml Vial) 10 mg IV Q4HP PRN PRN Reason: Tachyarrhythmias Docusate Sodium (Docusate Sodium 100 Mg Capsule) 100 mg PO BID [facility] Last Admin: 01/23/22 08:36 Dose: 100 mg Documented by: Hydralazine HCl (Hydralazine 20 Mg/Ml Vial) 10 mg IV Q4-6HP PRN PRN Reason: Hypertension Last Admin: 01/21/22 07:18 Dose: 10 mg Documented by: Sodium Chloride (Sodium Chloride 0.9%) 1,000 mls @ 125 mls/hr IV .Q8H [facility] Losartan Potassium (Losartan 50 Mg Tablet) 100 mg PO DAILY [facility] Last Admin: 01/23/22 08:37 Dose: 100 mg Documented by: Magnesium Hydroxide (Magnesium Hydroxide 30 Ml Oral.Susp) 30 ml PO DAILYP PRN PRN Reason: Constipation Melatonin (Melatonin 3 Mg Tablet) 3 mg PO HSP PRN PRN Reason: Insomnia Last Admin: 01/22/22 20:52 Dose: 3 mg Documented by: Metoprolol Tartrate (Metoprolol Tartrate 50 Mg Tablet) 100 mg PO BID [facility] Last Admin: 01/23/22 08:37 Dose: 100 mg Documented by: Nifedipine (Nifedipine 30 Mg Tab.Xl.24h) 30 mg PO BID [facility] Last Admin: 01/23/22 08:37 Dose: 30 mg Documented by: Ondansetron HCl (Ondansetron 4 Mg/2 Ml Vial) 4 mg IV Q6HP PRN PRN Reason: Nausea And Vomiting Pantoprazole Sodium (Pantoprazole 40 Mg Tablet) 40 mg PO QAMAC [facility] Last Admin: 01/23/22 07:35 Dose: 40 mg Documented by: Prochlorperazine (Prochlorperazine 10 Mg/2 Ml Vial) 5 mg IV Q4HP PRN PRN Reason: Nausea And Vomiting Quetiapine Fumarate (Quetiapine 25 Mg Tablet) 12.5 mg PO HSP PRN PRN Reason: iNSOMNIA-2nd option Senna (Sennosides 1 Tablet) 2 tab PO HS [facility] Last Admin: 01/22/22 20:52 Dose: 2 tab Documented by: Sodium Chloride (0.9 % Sodium Chloride 10 Ml Syringe) 10 ml IV Q8 [facility] Last Admin: 01/23/22 05:17 Dose: 10 ml Documented by: Tamsulosin HCl (Tamsulosin 0.4 Mg Capsule) 0.4 mg PO DAILY [facility] Last Admin: 01/23/22 08:40 Dose: 0.4 mg Documented by: A/P Assessment and plan (1) CVA (cerebrovascular accident): Status: Acute (2) Difficulty with speech: Status: Acute (3) CAD (coronary artery disease): Status: Chronic (4) Stage 2 acute kidney injury: Status: Acute (5) Atrial fibrillation: Status: Chronic Qualifiers: Atrial fibrillation type: paroxysmal Qualified Code(s): I48.0 - Paroxysmal atrial fibrillation (6) BPH (benign prostatic hyperplasia): Status: Chronic (7) Chronic thoracic aortic dissection: Status: Acute Narrative A/P Narrative: Assessment and Plans: 1. Acute ischemic stroke: MRI of the brain showing multiple foci of acute ischemic stroke Physical therapist cleared the patient is to going home but speech therapist recommended SNF placement. Accepted by [facility] SNF will be discharged there tomorrow 01/24 Eliquis as anticoagulations; patient refused aspirin Continue Lipitor Tight blood pressure controlled with clonidine, metoprolol, nifedipine, valsartan, and IV hydralazine as needed. Patient is already outside permissive hypertension phase 2. History of chronic atrial fibrillation: Continue metoprolol tartrate for rate control Eliquis as anticoagulations 3. History of chronic aortic dissection type B: Dr. Acosta discussed with the vascular surgeon from [facility] who cleared the patient to restart anticoagulations. Patient chose to to be on Eliquis only and does not not want aspirin. 4. Acute kidney injury in the context of history of chronic kidney disease: Likely secondary to IV contrast given a couple days ago We will start the patient on normal saline at 125 cc/h We will repeat a CMP in the morning to trend kidney functions 5. BPH: Continue Flomax GI ppx: PO Protonix DVT ppx: Eliquis Code status: DNR Prognosis: stable Disposition: inpatient med surg; pending SNF placement Time Spent With Patient Time: Total time spent is greater than 50% in coordination of care (as documented) at patient's floor/unit and/or counseling patient: QUALITY Stroke Onset of Symptoms Date: 01/19/22 Onset of Symptoms Time: 19:00 Symptom Onset Unknown: No VTE Deep Vein Thrombosis/Pulmonary Embolism Present on Admission: No
[2022-01-23] MEDS: SENNOSIDES 1 TABLET PO SCH (22:09)
[2022-01-24] MEDS: 0.9 % SODIUM CHLORIDE 1,000 ML IV SCH ×2 (03:30→11:13)
[2022-01-24] MEDS: 0.9 % SODIUM CHLORIDE 10 ML SYRINGE IV SCH ×2 (05:42→13:59)
[2022-01-24 06:18] LABS: Basophils # (Auto) 0.05 K/mcL (0.00-0.30); Basophils % (Auto) 0.8 % (0.0-2.0); Eosinophils # (Auto) 0.13 K/mcL (0.00-0.70); Eosinophils % (Auto) 2.1 % (0.0-7.0); Hematocrit 45.6 % (40.1-51.0); Hemoglobin 14.1 g/dL (13.7-17.5); Lymphocytes # (Auto) 1.64 K/mcL (1.50-4.80); Lymphocytes % (Auto) 26.5 % (15.5-49.0); Mean Cell Volume 92.5 fL (80.0-100.0); Mean Corpuscular HGB Conc 30.9 g/dL (31.0-36.0); Mean Platelet Volume 12.5 fL (7.4-10.4); Monocytes # (Auto) 0.53 K/mcL (0.10-0.90); Monocytes % (Auto) 8.6 % (1.0-12.0); Neutrophils % (Auto) 61.8 % (38.0-78.0); Platelet Count 164 K/mcL (140-440); RBC 4.93 M/mcL (4.63-6.08); Red Cell Distribution Width 14.1 % (11.5-14.5); WBC 6.2 K/mcL (4.5-11.0)
[2022-01-24 06:42] LABS: ALT/SGPT 15 U/L (<40); AST/SGOT 30 U/L (<40); Albumin 3.5 gm/dL (3.2-5.2); Albumin/Globulin Ratio 0.9 (1.0-2.3); Alkaline Phosphatase 115 U/L (39-117); Bilirubin,Total 0.6 mg/dL (0.1-1.0); Blood Urea Nitrogen 18 mg/dL (8-23); Calcium 9.1 mg/dL (8.6-10.4); Carbon Dioxide 22 mmol/L (22-30); Chloride 108 mmol/L (96-108); Globulin 4.1 gm/dL (2.2-3.7); Glomerular Filtration Rate 35; Glucose 85 mg/dL (70-105)
[2022-01-24] MEDS: PANTOPRAZOLE 40 MG TABLET PO SCH (07:20)
[2022-01-24] MEDS: NIFEdipine 30 MG TAB.XL.24H PO SCH (08:36)
[2022-01-24] MEDS: METOPROLOL TARTRATE 50 MG TABLET PO SCH (08:36)
[2022-01-24] MEDS: LOSARTAN 50 MG TABLET PO SCH (08:36)
[2022-01-24] MEDS: ATORVASTATIN 40 MG TABLET PO SCH (08:36)
[2022-01-24] MEDS: APIXABAN 5 MG TABLET PO SCH (08:37)
[2022-01-24] MEDS: TAMSULOSIN 0.4 MG CAPSULE PO SCH (08:37)
[2022-01-24] MEDS: cloNIDine HCL 0.1 MG TABLET PO SCH (08:37)
[2022-01-24] MEDS: DOCUSATE SODIUM 100 MG CAPSULE PO SCH (08:39)
--- NOTE | 2022-01-24 10:49 | Discharge Summary ---
Discharge Provider Provider IMPORTANT FOLLOW-UP INFORMATION FOR PCP: Patient information: Note initiated : 01/24/22 at 10:46 am Service Date, if different from initiated Date: [] Patient: Tre Ayala 71 y/o M admitted on 01/20/22 for stroke symptoms. Chief Complaint: [] Date of admission: 01/20/22 00:45 Discharge date: 01/24/22 Primary care physician: Ryan Maldonado Attending physician on admission: Alvina Acosta Consults: 01/19/22 Consult to Physician [CONS] Stat Comment: Consulting Provider: Alvina Acosta Reason For Exam: Physician to Consult 01/22/22 14:53 Consult to Physician [CONS] Routine Comment: snf referral Consulting Provider: [facility] Reason For Exam: Physician to Consult Attending physician on discharge: Demond Shay Pui COURSE Hospital Course Hospital course: Interval history: 71-year-old gentleman with a history of chronic aortic dissection, atrial fibrillation, CKD, CHF essential hypertension previous history of stroke was brought to the ER because of slurring of the speech and right arm numbness. Patient was seen in the ED on the and his symptoms were completely resolved he was reported slurring of the speech at that time which was completely back to normal and his NIH score was 0 and patient was discharged patient was offered admission but he declined but for the last 3 days he has been having worsening of symptoms and right arm numbness and was brought back to the ER In the ER he underwent work-up evaluated by telemetry neurology and recommended CTA of the head and neck and MRI for possible stroke. Patient supposed to be on anticoagulation for atrial fibrillation with the previous stroke but he declined he was leaning towards more naturopathic treatments and I reviewed the previous discussion with the PCP and he declined Coumadin or any newer oral anticoagulants. Patient will be admitted for further evaluation of stroke and for MRI His CTA showed chronic [place] B dissection 01/20 His symptoms already improving He was able to work with the PT Speech therapy pending MRI showing evidence of temporal stroke Discussed with the patient again about anticoagulation and dual antiplatelet Aortic dissection findings discussed with the on-call vascular surgeon at [facility]. Compared to the previous CT there is no significant change in aortic diameter previous 1 was 3.5 cm 4 months ago. He recommended outpatient follow-up in the next 2 months to further imaging. He also recommended no contraindication to do therapeutic anticoagulation. Discussed with the patient and patient is agreeable to do therapeutic anticoagulation and will start him on Eliquis 5 mg twice daily for anticoagulation for atrial fibrillation 01/22: Speech therapist recs. SNF placement, will work on placement instead of placement patient home. 01/23: No major overnight events. Patient's serum creatinine continues to get worse over the past 2 days this morning 2.3. Patient is continue to demonstrate word finding difficulty as well as hand eye coordination deficit. He denies numbness or weakness of any of his extremities. He denies any dysphagia. He was being recommended by speech therapist to be placed at SNF. [facility] and will be discharged tomorrow. We will start IV fluid for rehydration purposes for now. Also continue Eliquis. 01/24: Which clinical stability and patient's being accepted by and being discharged to SNF [facility]. Discharge diagnosis: stroke, ischemic Time Spent with Patient Time attestation: Total time spent providing and/or coordinating discharge services: Time spent: Less than 30 minutes EXAM Constitutional Vitals: Temp Pulse Resp BP Pulse Ox 36.1 C 84 12 164/97 99 01/24/22 07:20 01/24/22 07:20 01/24/22 04:42 01/24/22 07:20 01/24/22 07:33 General appearance: cooperative and no acute distress Head Head exam: Present atraumatic and normocephalic Eye Eye exam: Present EOMI and PERRL ENT ENT exam: Present mucous membranes moist, normal exam and normal external ear exam Neck Neck exam: Present normal inspection; Absent lymphadenopathy, tenderness or thyromegaly Respiratory Respiratory exam: Absent accessory muscle use, respiratory distress or wheezes Cardiovascular Cardiovascular exam: Present irregular rhythm; Absent JVD GI/Abdominal GI/Abdominal exam: Present normal bowel sounds and soft; Absent organomegaly or tenderness Rectal Rectal exam: Present deferred Extremities Exam Extremities exam: Present full ROM, normal capillary refill and normal inspection; Absent tenderness Neurological Exam Neurological exam: Present alert, CN II-XII intact and oriented X3; Absent motor sensory deficit Additional comments: Stuttering speech with word finding difficulties Psychiatric Psychiatric exam: Present normal affect and normal mood; Absent anxious or depressed Skin Skin exam: Present dry and intact Discharge Data Data Completed and Pending Labs on day of discharge: Labs from last 24 hours 01/24/22 01/24/22 05:01 05:01 WBC 6.2 RBC 4.93 Hgb 14.1 Hct 45.6 MCV 92.5 MCH 28.6 MCHC 30.9 L RDW 14.1 Plt Count 164 MPV 12.5 H Immature Gran % (Auto) 0.2 Neut % (Auto) 61.8 Lymph % (Auto) 26.5 [place] % (Auto) 8.6 Eos % (Auto) 2.1 Baso % (Auto) 0.8 Lymph # (Auto) 1.64 [place] # (Auto) 0.53 Eos # (Auto) 0.13 Baso # (Auto) 0.05 Immature Gran # 0.01 Absolute Neutrophils 3.83 Sodium 142 Potassium 3.9 Chloride 108 Carbon Dioxide 22 Anion Gap 12.0 BUN 18 Creatinine 1.9 H GFR Calculation 35 Glucose 85 Calcium 9.1 Magnesium 2.1 Total Bilirubin 0.6 AST 30 ALT 15 Alkaline Phosphatase 115 Total Protein 7.6 Albumin 3.5 Globulin 4.1 H Albumin/Globulin Ratio 0.9 L Discharge Plan Patient/Caregiver Discharge Instructions Activity: increase activity as tolerated Diet: Regular Diet Instructions: Aspirin (By mouth), Atorvastatin (By mouth), Cefdinir (By mouth), Apixaban (By mouth), A-fib (Atrial Fibrillation) (DC), Ischemic Stroke (DC) Activity Restrictions/Additional Instructions: Resume home diet as tolerated. Take all meals up in chair, sitting at 90 degrees, to prevent aspiration. Increase activity as tolerated. Continue fall precautions. [employer] will be following you. They will contact you to schedule. [phone]. Follow-up with Jayce Bundy Interventional Radiologist Office will contact you to schedule. If they don't contact you by Tuesday 01/30, contact their office. Follow-up with Mazin Pinon, Neurologist, in 2-3 weeks. Office will contact you to schedule. If they don't contact you by Tuesday 01/30, contact their office. Follow-up with your information systems specialist in 1-2 weeks. Contact the office on Tuesday 01/23 to schedule. Take all medication as directed. Your medications were electronically transmitted to [facility]'s pharmacy Take your insurance cards and photo ID to tack picker your medication. Return to ER for fever, chills, uncontrolled pain, inability to urinate or have a bowel movement, nausea and/or vomiting, swelling, redness, signs of infection, shortness of breath, chest pain, return of symptoms, or other acute symptom. This discharge packet is provided to you to help keep you informed about your care. We want to ensure you get everything you need when you go home. You will also be receiving a call from us in a few days to follow up with you and see how you are doing since your discharge. This gives us a chance to listen to any concerns you maybe experiencing since you were discharged or any additional needs you may have, as well as providing us feedback on your care experience. We strive to always provide excellent care and thank you for your feedback and for choosing [facility]. Prescriptions: New Eliquis 5 mg tablet 5 mg PO BID Qty: 60 3RF cefdinir 300 mg capsule 300 mg PO BID Qty: 14 0RF atorvastatin [Lipitor] 40 mg tablet 40 mg PO QHS Qty: 30 3RF aspirin 81 mg capsule 81 mg PO QDAY Qty: 30 3RF Continued valsartan 160 mg Tablet 160 mg PO QDAY 0RF tamsulosin [Flomax] 0.4 mg Capsule 0.4 mg PO PRN PRN (Reason: Urinary Retention) 0RF metoprolol tartrate 100 mg tablet 1 tab PO BID 0RF nifedipine 30 mg tablet extended release 1 tab PO BID 0RF clonidine HCl 0.1 mg tablet 1 tab PO TID 0RF Other Ambulatory Orders: Discharge Referrals (Routine) Location: None Selected Ordered By: Alvina Acosta Discharge Referrals (Routine) Location: None Selected Ordered By: Alvina Acosta Follow Up Plan Follow up with: Jayce Bundy MD [Physician] - (Office will contact you to schedule. If they don't contact you by Tuesday 01/30, contact their office.) Mazin Pinon MD [Physician] - (Office will contact you to schedule. If they don't contact you by Tuesday 01/30, contact their office.) Ryan Maldonado MD [Primary Care Provider] - 01/24/22 4:45 pm Patient Disposition: Xfer SNF Prognosis: Fair Rehab Potential: Good I certify that the patient requires SNF services: Yes Overall status at discharge: patient is progressing back to baseline Discharge Orders: Discharge Order (Routine); Ordered 06/29/22 Ordered By: Alvina BROWN VTE Deep Vein Thrombosis/Pulmonary Embolism Present on Admission: No
--- NOTE | 2022-01-24 12:47 | EKG ---
[facility] Test Date: 2022-01-19 Pat Name: Tre Ayala Department: ED Room: Gender: Male Tooling Engineer: DONALD : 1950 Requested By: Dontae Crowley Order Number: [id number] Reading MD: Giorgio Son Measurements Intervals [place] Rate: 89 P: IN: QRS: -3 QRSD: 99 T: 136 QT: 412 QTc: 502 Interpretive Statements Atrial fibrillation LVH with secondary repolarization abnormality Consider inferior infarct Prolonged QT interval Electronically Signed On 01-24-2022 12:47:44 PDT by Giorgio Son /[email or web address]/[id number]
== END 2022-01-24 13:06 | DRG 64 ==
LOC: ED 19:52 → ICU 01-20 00:45
PROVIDERS: ADMIT Internal Medicine; ATTEND Internal Medicine